=== PATIENT | female | born 1940 | race Caucasian/White ===

== ENCOUNTER 2017-07-19 18:16 | Emergency (ER) | payer OTHER ==
[2017-07-19 18:28] VITALS: BP 198/71; PULSE 60; TEMP 97.5; BMI 27.3
--- NOTE | 2017-07-19 19:18 | PDOC ---
History of Present Illness - General History Source: Patient Exam Limitations: No Limitations - History of Present Illness Initial Comments: 07/19/17 20:07 The patient is a 76 year old female with history of hypertension, diabetes, who presents to the ED complaining of approximately 3 days of suprapubic discomfort with associated mild dysuria. Pain is nonradiating, nonmigrating, not associated with eating. The patient denies any fever or chills. She denies any nausea, vomiting, or diarrhea. She denies hematuria. She denies any flank pain. <Claritza Manuel - Last Filed: 07/19/17 20:07> <Kamran Ordonez - Last Filed: 07/20/17 05:10> - General Chief Complaint: Urinary Problem Stated Complaint: PELVIC PAIN Time Seen by Provider: 07/19/17 19:12 Past History <Claritza Manuel - Last Filed: 07/19/17 20:07> - Past Medical History Diabetes: Yes HTN: Yes - Suicide/Smoking/Psychosocial Hx Smoking History: Never smoked <Kamran Ordonez - Last Filed: 07/20/17 05:10> - Past Medical History Allergies/Adverse Reactions: Allergies Allergy/AdvReac Type Severity Reaction Status Date / Time No Known Allergies Allergy Unverified 07/19/17 18:25 Home Medications: Ambulatory Orders Cephalexin [Keflex] 500 mg PO QID #20 capsule 07/19/17 Review of Systems - Review of Systems Able to Perform ROS?: Yes Comments:: 07/19/17 20:13 A complete review of 10 out of 10 review of systems is taken and is negative apart from what is previously mentioned below and in the HPI. <Claritza Manuel - Last Filed: 07/19/17 20:07> *Physical Exam - Vital Signs Last Vital Signs Temp Pulse Resp BP Pulse Ox 97.5 F L 60 18 198/71 100 07/19/17 18:25 07/19/17 18:25 07/19/17 18:25 07/19/17 18:25 07/19/17 18:25 <Claritza Manuel - Last Filed: 07/19/17 20:07> - Vital Signs Last Vital Signs Temp Pulse Resp BP Pulse Ox 97.5 F L 60 18 198/71 100 07/19/17 18:25 07/19/17 18:25 07/19/17 18:25 07/19/17 18:25 07/19/17 18:25 <Kamran Ordonez - Last Filed: 07/20/17 05:10> Medical Decision Making - Medical Decision Making 07/20/17 05:09 Well-appearing no apparent distress. History and examination and urinalysis consistent with urinary tract infection. Patient provided with 5 day course of Keflex. She'll follow-up with her primary care provider this week Findings, need for follow-up and strict return instructions discussed with patient. <Kamran Ordonez - Last Filed: 07/20/17 05:10> *DC/Admit/Observation/Transfer - Attestations Scribe Attestion: 07/19/17 20:13 Documentation prepared by Claritza Manuel, acting as medical equipment repairer for Kamran Ordonez MD. <Claritza Manuel - Last Filed: 07/19/17 20:07> <Kamran Ordonez - Last Filed: 07/20/17 05:10> Diagnosis at time of Disposition: UTI (urinary tract infection) Qualifiers: Urinary tract infection type: site unspecified Hematuria presence: with hematuria Qualified Code(s): N39.0 - Urinary tract infection, site not specified - Discharge Dispostion Disposition: HOME - Prescriptions Prescriptions: Cephalexin [Keflex] 500 mg PO QID #20 capsule - Referrals Referrals: Thang Villafuerte MD [Primary Care Provider] - - Patient Instructions Printed Discharge Instructions: Urinary Tract Infection Additional Instructions: Drink plenty of fluids. Take Keflex as prescribed. Follow-up with your doctor in 1-2 days. Return to the emergency department for any fever severe abdominal pain severe worsening symptoms or for any concerns.
[2017-07-19 20:00] LABS: URINE APPEARANCE CLOUDY; URINE BILIRUBIN NEGATIVE (NEGATIVE); URINE BLOOD 1+ (NEGATIVE); URINE COLOR LTYELLOW; URINE GLUCOSE (UA) 3+ (NEGATIVE); URINE KETONE NEGATIVE (NEGATIVE); URINE NITRITE NEGATIVE (NEGATIVE); URINE UROBILINOGEN NEGATIVE mg/dL (0.2-1.0)
[2017-07-19 20:08] LABS: URINE PROTEIN 2+ (NEGATIVE)
[2017-07-19 20:09] LABS: URINE RBC 13 /hpf (0-3); URINE WBC 558 /hpf (3-5)
[2017-07-19] MEDS ORDERED: CEPHALEXIN MONOHYDRATE 500 MG CAPSULE (UD) PO ONE (20:39)
[2017-07-19] MEDS ORDERED: CEPHALEXIN MONOHYDRATE 250 MG CAPSULE (FP) ONE (21:01)
[2017-07-19 21:17] LABS: URINE LEUK ESTERASE 1+ (NEGATIVE)
== END 2017-07-19 21:07 | disposition home or self-care (01) ==
LOC: JER 18:16
DX: N39.0 Urinary tract infection, site not specified (principal); I10 Essential (primary) hypertension; E11.9 Type 2 diabetes mellitus without complications
CPT/HCPCS: 81003; 81015; 87086; 99282-25

== ENCOUNTER 2018-01-18 10:01 | Day surgery (SDC) | payer OTHER ==
[2018-01-14 17:46] VITALS: BMI 24.9
[2018-01-18] MEDS ORDERED: VASOPRESSIN 20 UNITS/ML VIAL IV ONE (12:26)
[2018-01-18] MEDS ORDERED: fentaNYL CITRATE 250 MCG/5 ML VIAL ONE (12:29)
[2018-01-18] MEDS ORDERED: MIDAZOLAM HCL 2 MG/2 ML SINGLE DOSE VIAL ONE (12:30)
[2018-01-18] MEDS ORDERED: ROCURONIUM BROMIDE 50 MG/5 ML VIAL ONE (12:30)
[2018-01-18] MEDS ORDERED: ceFAZolin SODIUM 1 GM VIAL IVPB ONE (12:59)
[2018-01-18] MEDS ORDERED: FLUORESCEIN SODIUM 10% 500 MG/5 ML VIAL IVPUSH ONE (13:15)
[2018-01-18] MEDS ORDERED: FUROSEMIDE 40 MG/4 ML INJECTABLE VIAL ONE (13:38)
[2018-01-18] MEDS ORDERED: BUPIVACAINE HCL/PF 0.5% (5MG/ML) 10 ML VIAL ONE (13:39)
[2018-01-18] MEDS ORDERED: BUPIVACAINE HCL/PF 0.5% (5MG/ML) 10 ML VIAL IJ ONE (13:41)
--- NOTE | 2018-01-18 14:14 | OP ---
DATE OF OPERATION: PREOPERATIVE DIAGNOSIS: Stress urinary incontinence, cystocele, rectocele, perineocele. POSTOPERATIVE DIAGNOSIS: Stress urinary incontinence, cystocele, rectocele, perineocele. PROCEDURE PERFORMED: Sling, urethropexy, anterior and posterior colporrhaphy, perineoplasty. PRIMARY SURGEON: Timothy Schmid MD DESCRIPTION OF PROCEDURE: After adequate anesthesia, the patient was prepped and draped in dorsal lithotomy position. A dilute solution of Pitressin was injected anterior and posterior vaginal wall. A vertical incision was made over the anterior vaginal wall. Perivesical fascia was dissected away and plicated on itself using 0 Vicryl sutures in circumferential stitch x3 layers. The mid urethral area was dissected off the space of Retzius. A transvaginal tape sling was then inserted in its proper anatomical location. Cystoscopy was performed after solution of was given intravenously denoting no foreign bodies of the bladder and yellow dye emanating from both ureteral orifices. Minimal tension was applied to the sling arms. Sling arms were then covered with the skin. Skin closed using Dermabond. The anterior vaginal wall was closed using 2-0 Vicryl suture in continuous fashion. The back wall of the vaginal and perirectal fascia dissected away, plicated out using 2-0 Vicryl suture in interrupted fashion. The superficial muscle was reapproximated in the midline using 0 Vicryl suture in interrupted fashion x2. Rectal exam negative for any foreign bodies. The back wall of the vagina and perineal skin was then closed using 2-0 Vicryl sutures in continuous fashion. Margarita [id number]
[2018-01-18] MEDS ORDERED: hydrALAZINE HCL 20 MG/ML VIAL ONE (14:48)
[2018-01-18] MEDS ORDERED: oxyCODONE HCL 5 MG TABLET PO PRN (14:49)
[2018-01-18] MEDS ORDERED: ONDANSETRON 4 MG/2 ML VIAL IVPUSH PRN (14:49)
[2018-01-18] MEDS ORDERED: hydrALAZINE HCL 20 MG/ML VIAL IVPUSH ONE ×2 (14:50)
[2018-01-18] MEDS ORDERED: LACTATED RINGERS SOLUTION 1,000 ML IV SCH (15:00)
[2018-01-18 16:32] VITALS: TEMP 97.4
[2018-01-18 17:53] VITALS: BP 164/70; PULSE 75
--- NOTE | 2018-01-20 16:09 | PATH ---
Surgical Pathology Report Patient Name: SHELLEY VILLANUEVA [facility]. Rec. #: [id number] /Age/Gender: 1940 (Age: 77) / F Account: [id number] Location: [facility] SURGICAL Taken: 01/18/2018 Received: 01/19/2018 Reported: 01/20/2018 Physicians: Timothy Schmid M.D. Specimen(s) Received VAGINAL MUCOSA ANTERIOR AND POSTERIOR Clinical History Urinary stress incontinence Final Diagnosis VAGINAL MUCOSA, ANTERIOR AND POSTERIOR, EXCISION: VAGINAL SQUAMOUS MUCOSA WITHOUT SIGNIFICANT PATHOLOGIC FINDINGS. SEPARATE FRAGMENT OF FIBROUS TISSUE WITH MILD ACUTE AND CHRONIC INFLAMMATION. Electronically Signed Sandy Tapia M.D. Gross Description Received in formalin labeled "vaginal mucosa, anterior and posterior," are 2 lopez portions of mucosal tissue measuring 2.4 x 1.6 x 0.3 cm and 5.3 x 3.3 x 0.3 cm. No discrete lesions are identified. Mechanical Maintenance Foreman sections are submitted in one cassette. /01/19/2018 [facility]/01/19/2018
== END 2018-01-18 17:30 | disposition home or self-care (01) ==
LOC: JASU-SURG 10:01
PROVIDERS: ATTEND Obstetrics & Gynecology Female Pelvic Medicine and Reconstructive Surgery
PROC: 0WQN0ZZ Repair Female Perineum, Open Approach (ICD-10-PCS; 2018-01-18)
PROC: 0TSD0ZZ Reposition Urethra, Open Approach (ICD-10-PCS; 2018-01-18)
PROC: 0WBN0ZX Excision of Female Perineum, Open Approach, Diagnostic (ICD-10-PCS; 2018-01-18)
PROC: 0JQC0ZZ Repair Pelvic Region Subcutaneous Tissue and Fascia, Open Approach (ICD-10-PCS; principal; 2018-01-18 12:00)
PROC: 0JQC0ZZ Repair Pelvic Region Subcutaneous Tissue and Fascia, Open Approach (ICD-10-PCS; 2018-01-18 12:00)
DX: N39.3 Stress incontinence (female) (male) (principal); I10 Essential (primary) hypertension; E11.9 Type 2 diabetes mellitus without complications; E78.00 Pure hypercholesterolemia, unspecified; N81.10 Cystocele, unspecified; N81.6 Rectocele; N81.81 Perineocele
CPT/HCPCS: 82962; 88302-TC; 94760

== ENCOUNTER 2021-02-08 20:17 | Inpatient (IN) | payer OTHER ==
[2021-02-08] MEDS ORDERED: SODIUM CHLORIDE 0.9% 500 ML INFUS.BAG IV ONE (21:08)
[2021-02-08 21:16] LABS: HEMOGLOBIN 9.4 GM/dL (10.7-15.3); MCH 31.1 pg (25.7-33.7); MCHC 33.5 g/dl (32.0-36.0); MEAN CELL VOLUME 92.7 fl (80-96); PLATELET COUNT 367 K/MM3 (134-434); RBC 3.02 M/mm3 (3.60-5.2); RDW 13.3 % (11.6-15.6); WHITE BLOOD COUNT 7.8 K/mm3 (4.0-10.0)
[2021-02-08] MEDS ORDERED: LACTATED RINGERS SOLUTION 1000 ML INFUS.BAG IV ONE (21:18)
[2021-02-08] MEDS ORDERED: ATROPINE SULFATE 1 MG/10 ML DISP.SYRIN IVPUSH ONE ×2 (21:21→22:01)
[2021-02-08] MEDS ORDERED: ATROPINE SULFATE 1 MG/10 ML DISP.SYRIN ONE ×2 (21:23→21:33)
[2021-02-08 21:25] LABS: INR 0.97 (0.83-1.09); PROTHROMBIN TIME (PATIENT) 11.9 SEC (9.7-13.0)
[2021-02-08] MEDS ORDERED: EPINEPHrine 1:10,000 (P-F SYR) 1 MG/10 ML DISP.SYRIN ONE (21:38)
[2021-02-08] MEDS ORDERED: MAGNESIUM 1GM/D5W - 1 GM/100 ML IVPB IVPB ONE ×2 (21:41→22:21)
[2021-02-08 21:42] LABS: CHLORIDE 107 mmol/L (98-107); SODIUM 139 mmol/L (136-145)
[2021-02-08 21:44] LABS: ALBUMIN 3.5 g/dl (3.4-5.0); ANION GAP 10 MMOL/L (8-16); BLOOD UREA NITROGEN 23.8 mg/dL (7-18); CO2 22 mmol/L (21-32); GLUCOSE,RANDOM 281 mg/dL (74-106)
[2021-02-08 21:47] LABS: SGOT/AST 20 U/L (15-37); SGPT/ALT 18 U/L (13-61)
[2021-02-08 21:48] LABS: CREATININE 2.4 mg/dL (0.55-1.3)
[2021-02-08 21:49] LABS: BILIRUBIN,TOTAL 0.2 mg/dL (0.2-1); TOT PROT 6.6 g/dl (6.4-8.2)
[2021-02-08 21:50] LABS: ALK PHOS 94 U/L (45-117)
[2021-02-08] MEDS ORDERED: INSULIN REGULAR HUMAN 100 UNITS/ML *VIAL IVPUSH ONE (21:56)
[2021-02-08] MEDS ORDERED: DEXTROSE 50%-WATER - 25 GM/50 ML VIAL IVPUSH ONE (22:00)
[2021-02-08] MEDS ORDERED: FUROSEMIDE 40 MG/4 ML INJECTABLE VIAL IVPUSH ONE (22:00)
[2021-02-08] MEDS ORDERED: MAGNESIUM SULF 50% (8.12 MEQ/2 ML-1 GM VIAL) IVPB ONE (22:03)
[2021-02-08] MEDS ORDERED: DEXTROSE 50%-WATER 25 GM/50 ML DISP.SYRIN ONE (22:04)
[2021-02-08] MEDS ORDERED: SODIUM ZIRCONIUM CYCLOSILICATE (LOKELMA) 5 GM PACKET ONE (22:05)
[2021-02-08] MEDS ORDERED: FUROSEMIDE 40 MG/4 ML INJECTABLE VIAL ONE (22:05)
[2021-02-08] MEDS: SODIUM ZIRCONIUM CYCLOSILICATE (LOKELMA) 5 GM PACKET PO SCH (22:17)
[2021-02-08] MEDS ORDERED: EPINEPHrine 1 MG/ML VIAL IV ONE (22:45)
[2021-02-08] MEDS ORDERED: DOPAMINE 400 MG/D5W - 400,000 MCG/250 ML INFUS.BAG IVPB ONE (22:54)
[2021-02-08] MEDS ORDERED: CALCIUM GLUCONATE 10% - 1,000 MG/10 ML VIAL IVPB ONE (22:54)
[2021-02-08] MEDS ORDERED: DOPAMINE 400 MG/D5W - 400,000 MCG/250 ML INFUS.BAG IVPB SCH (23:00)
[2021-02-08] MEDS ORDERED: CALCIUM GLUCONATE 10% - 1,000 MG/10 ML VIAL ONE (23:00)
[2021-02-08] MEDS ORDERED: ONDANSETRON 4 MG/2 ML VIAL IVPUSH ONE (23:34)
[2021-02-08] MEDS ORDERED: ONDANSETRON 4 MG/2 ML VIAL ONE (23:35)
[2021-02-09] MEDS ORDERED: ONDANSETRON 4 MG/2 ML VIAL IVPUSH ONE ×2 (01:24→03:35)
[2021-02-09] MEDS ORDERED: ONDANSETRON 4 MG/2 ML VIAL ONE ×2 (01:28→03:35)
[2021-02-09] MEDS ORDERED: MUPIROCIN 2% TOPICAL OINTMENT FOR DECOLONIZATION NS SCH (01:45)
[2021-02-09] MEDS ORDERED: DOBUTAMINE 250 MG/D5W - 250,000 MCG/250 ML INFUS.BAG ONE (03:43)
[2021-02-09] MEDS ORDERED: DOBUTAMINE 250 MG/D5W - 250,000 MCG/250 ML INFUS.BAG IV SCH (03:45)
[2021-02-09 04:23] LABS: LACTIC ACID 2.2 mmol/L (0.4-2.0)
[2021-02-09 07:52] LABS: HEMATOCRIT 26.3 % (32.4-45.2); HEMOGLOBIN 8.9 GM/dL (10.7-15.3); MCH 30.8 pg (25.7-33.7); MCHC 33.6 g/dl (32.0-36.0); MEAN CELL VOLUME 91.6 fl (80-96); MEAN PLT VOLUME 7.4 fl (7.5-11.1); PLATELET COUNT 342 K/MM3 (134-434); RBC 2.88 M/mm3 (3.60-5.2); RDW 13.5 % (11.6-15.6); WHITE BLOOD COUNT 12.9 K/mm3 (4.0-10.0)
[2021-02-09 07:54] LABS: CHLORIDE 102 mmol/L (98-107); SODIUM 135 mmol/L (136-145)
[2021-02-09 07:57] LABS: ALBUMIN 3.3 g/dl (3.4-5.0); CALCIUM 7.4 mg/dL (8.5-10.1)
[2021-02-09 07:58] LABS: ANION GAP 12 MMOL/L (8-16); BLOOD UREA NITROGEN 28.9 mg/dL (7-18); CO2 21 mmol/L (21-32); MAGNESIUM 1.8 mg/dL (1.8-2.4)
[2021-02-09 08:00] LABS: SGPT/ALT 19 U/L (13-61)
[2021-02-09 08:01] LABS: CREATININE 2.7 mg/dL (0.55-1.3); PHOSPHOROUS 3.6 mg/dL (2.5-4.9); SGOT/AST 18 U/L (15-37)
[2021-02-09 08:02] LABS: BILIRUBIN,TOTAL 0.4 mg/dL (0.2-1); TOT PROT 6.2 g/dl (6.4-8.2)
[2021-02-09 08:03] LABS: ALK PHOS 85 U/L (45-117)
[2021-02-09 08:04] LABS: IRON SERUM 43 ug/dL (50-175)
[2021-02-09 08:05] LABS: TOTAL IRON BINDING CAPACITY 268 ug/dL (250-450)
[2021-02-09] MEDS ORDERED: MAGNESIUM SULF 50% (8.12 MEQ/2 ML-1 GM VIAL) IVPB ONE (08:15)
[2021-02-09] MEDS ORDERED: SODIUM BICARBONATE 8.4% 50 MEQ/50 ML DISP.SYRIN IVPUSH ONE (08:16)
[2021-02-09] MEDS ORDERED: DEXTROSE 50%-WATER - 25 GM/50 ML VIAL IVPUSH ONE (08:16)
[2021-02-09] MEDS ORDERED: INSULIN REGULAR HUMAN 100 UNITS/ML *VIAL IVPUSH ONE (08:16)
[2021-02-09 08:19] LABS: GLUCOSE,RANDOM 407 mg/dL (74-106)
[2021-02-09] MEDS ORDERED: DEXTROSE 50%-WATER 25 GM/50 ML DISP.SYRIN ONE (08:23)
[2021-02-09] MEDS: SODIUM ZIRCONIUM CYCLOSILICATE (LOKELMA) 5 GM PACKET PO SCH (09:10)
[2021-02-09] MEDS: MUPIROCIN 2% TOPICAL OINTMENT FOR DECOLONIZATION NS SCH ×2 (11:00→21:04)
[2021-02-09] MEDS: INSULIN SLIDING SCALE (NOVOLOG) 1 VIAL SQ SCH ×3 (11:48→21:05)
[2021-02-09 14:18] LABS: ALBUMIN 3.2 g/dl (3.4-5.0); CALCIUM 8.1 mg/dL (8.5-10.1)
[2021-02-09 14:19] LABS: BLOOD UREA NITROGEN 29.9 mg/dL (7-18)
[2021-02-09 14:22] LABS: CREATININE 2.5 mg/dL (0.55-1.3)
[2021-02-09 14:23] LABS: BILIRUBIN,TOTAL 0.5 mg/dL (0.2-1); TOT PROT 6.1 g/dl (6.4-8.2)
[2021-02-09 14:28] LABS: LACTIC ACID 2.6 mmol/L (0.4-2.0)
[2021-02-09 20:33] LABS: LACTIC ACID 3.5 mmol/L (0.4-2.0)
[2021-02-09] MEDS ORDERED: CHLORHEXIDINE GLUCONATE 4% CLEANSER FOR DECOLONIZATION TP SCH ×2 (22:00)
[2021-02-10] MEDS: INSULIN SLIDING SCALE (NOVOLOG) 1 VIAL SQ SCH ×4 (06:10→21:26)
[2021-02-10 07:57] LABS: CHLORIDE 107 mmol/L (98-107); SODIUM 141 mmol/L (136-145)
[2021-02-10 08:05] LABS: CALCIUM 8.4 mg/dL (8.5-10.1)
[2021-02-10 08:06] LABS: ALBUMIN 3.3 g/dl (3.4-5.0); ANION GAP 6 MMOL/L (8-16); BLOOD UREA NITROGEN 30.3 mg/dL (7-18); CO2 27 mmol/L (21-32); GLUCOSE,RANDOM 113 mg/dL (74-106); MAGNESIUM 2.3 mg/dL (1.8-2.4)
[2021-02-10 08:08] LABS: PHOSPHOROUS 5.3 mg/dL (2.5-4.9); SGPT/ALT 21 U/L (13-61)
[2021-02-10 08:09] LABS: BILIRUBIN,TOTAL 0.7 mg/dL (0.2-1); CREATININE 2.3 mg/dL (0.55-1.3); SGOT/AST 26 U/L (15-37)
[2021-02-10 08:10] LABS: ALK PHOS 78 U/L (45-117); TOT PROT 6.2 g/dl (6.4-8.2)
[2021-02-10 08:52] LABS: BASO % 0.4 % (0-2.0); EOS % 1.7 % (0-4.5); HEMATOCRIT 25.3 % (32.4-45.2); HEMOGLOBIN 8.6 GM/dL (10.7-15.3); LYMPH % 33.2 % (8-40); MCH 31.2 pg (25.7-33.7); MEAN CELL VOLUME 91.8 fl (80-96); MEAN PLT VOLUME 7.5 fl (7.5-11.1); MONO % 6.7 % (3.8-10.2); PLATELET COUNT 330 K/MM3 (134-434); RBC 2.76 M/mm3 (3.60-5.2); RDW 13.4 % (11.6-15.6); WHITE BLOOD COUNT 7.6 K/mm3 (4.0-10.0)
[2021-02-10] MEDS ORDERED: SODIUM CHLORIDE 1,000 ML IV SCH (10:30)
[2021-02-10] MEDS: SODIUM ZIRCONIUM CYCLOSILICATE (LOKELMA) 5 GM PACKET PO SCH (11:28)
[2021-02-10] MEDS: MUPIROCIN 2% TOPICAL OINTMENT FOR DECOLONIZATION NS SCH ×2 (11:29→21:25)
[2021-02-10] MEDS ORDERED: HEPARIN NA (PORCINE) 5,000 UNITS/ML 1ML VIAL SQ SCH (12:00)
[2021-02-10 13:36] VITALS: BMI 23.3
[2021-02-10] MEDS: CHLORHEXIDINE GLUCONATE 4% CLEANSER FOR DECOLONIZATION TP SCH (21:26)
[2021-02-10] MEDS: HEPARIN NA (PORCINE) 5,000 UNITS/ML 1ML VIAL SQ SCH (21:26)
[2021-02-10] MEDS ORDERED: hydrALAZINE HCL 20 MG/ML VIAL IVPUSH ONE (21:45)
[2021-02-11] MEDS: INSULIN SLIDING SCALE (NOVOLOG) 1 VIAL SQ SCH ×4 (06:03→21:43)
[2021-02-11] MEDS: LISINOPRIL 10 MG TABLET PO SCH (10:47)
[2021-02-11] MEDS: SODIUM ZIRCONIUM CYCLOSILICATE (LOKELMA) 5 GM PACKET PO SCH (10:47)
[2021-02-11] MEDS: HEPARIN NA (PORCINE) 5,000 UNITS/ML 1ML VIAL SQ SCH ×2 (10:47→21:42)
[2021-02-11 11:24] LABS: BASO % 0.6 % (0-2.0); EOS % 2.4 % (0-4.5); HEMATOCRIT 27.6 % (32.4-45.2); HEMOGLOBIN 9.4 GM/dL (10.7-15.3); LYMPH % 26.7 % (8-40); MCH 31.5 pg (25.7-33.7); MCHC 34.1 g/dl (32.0-36.0); MEAN CELL VOLUME 92.3 fl (80-96); MEAN PLT VOLUME 7.3 fl (7.5-11.1); MONO % 7.9 % (3.8-10.2); NEUT % 62.4 % (42.8-82.8); PLATELET COUNT 366 K/MM3 (134-434); RBC 2.99 M/mm3 (3.60-5.2); RDW 13.1 % (11.6-15.6); WHITE BLOOD COUNT 5.9 K/mm3 (4.0-10.0)
[2021-02-11] MEDS: MUPIROCIN 2% TOPICAL OINTMENT FOR DECOLONIZATION NS SCH ×2 (11:34→21:38)
[2021-02-11 11:39] LABS: ALBUMIN 3.2 g/dl (3.4-5.0); BLOOD UREA NITROGEN 22.1 mg/dL (7-18); CALCIUM 8.2 mg/dL (8.5-10.1); MAGNESIUM 1.8 mg/dL (1.8-2.4)
[2021-02-11 11:42] LABS: CREATININE 1.5 mg/dL (0.55-1.3)
[2021-02-11 11:44] LABS: BILIRUBIN,TOTAL 0.4 mg/dL (0.2-1); TOT PROT 6.5 g/dl (6.4-8.2)
[2021-02-11] MEDS: CHLORHEXIDINE GLUCONATE 4% CLEANSER FOR DECOLONIZATION TP SCH (21:38)
[2021-02-11] MEDS ORDERED: INSULIN (LEVEMIR) 100 UNITS/ML UNITS SQ SCH (22:00)
[2021-02-12] MEDS: INSULIN SLIDING SCALE (NOVOLOG) 1 VIAL SQ SCH ×3 (06:28→17:35)
[2021-02-12] MEDS: HEPARIN NA (PORCINE) 5,000 UNITS/ML 1ML VIAL SQ SCH (09:15)
[2021-02-12] MEDS: LISINOPRIL 10 MG TABLET PO SCH (09:15)
[2021-02-12] MEDS ORDERED: SODIUM ZIRCONIUM CYCLOSILICATE (LOKELMA) 5 GM PACKET PO SCH (10:00)
[2021-02-12 11:59] LABS: BASO % 0.6 % (0-2.0); EOS % 1.7 % (0-4.5); HEMATOCRIT 26.4 % (32.4-45.2); HEMOGLOBIN 9.1 GM/dL (10.7-15.3); LYMPH % 34.4 % (8-40); MCH 31.7 pg (25.7-33.7); MCHC 34.3 g/dl (32.0-36.0); MEAN CELL VOLUME 92.5 fl (80-96); MEAN PLT VOLUME 7.5 fl (7.5-11.1); MONO % 8.4 % (3.8-10.2); NEUT % 54.9 % (42.8-82.8); PLATELET COUNT 351 K/MM3 (134-434); RBC 2.86 M/mm3 (3.60-5.2); RDW 13.1 % (11.6-15.6)
[2021-02-12 12:23] LABS: ALBUMIN 3.2 g/dl (3.4-5.0); CALCIUM 8.2 mg/dL (8.5-10.1); MAGNESIUM 1.9 mg/dL (1.8-2.4)
[2021-02-12 12:26] LABS: CREATININE 1.8 mg/dL (0.55-1.3)
[2021-02-12 12:28] LABS: BILIRUBIN,TOTAL 0.2 mg/dL (0.2-1); TOT PROT 6.3 g/dl (6.4-8.2)
[2021-02-12] MEDS ORDERED: MECLIZINE HCL 12.5 MG TABLET PO PRN (13:46)
[2021-02-12 14:24] VITALS: BP 141/57; PULSE 55; TEMP 98.1
== END 2021-02-12 18:13 | disposition home or self-care (01) | DRG 309 ==
LOC: JER 20:17 → JERBED 22:31 → JICU 02-09 06:57 → J4W 02-10 18:26
PROVIDERS: ADMIT Internal Medicine Pulmonary Disease; ATTEND Nurse Practitioner Family
DX: I44.1 Atrioventricular block, second degree (principal); E87.2 Acidosis; N17.9 Acute kidney failure, unspecified; I24.8 Other forms of acute ischemic heart disease; R00.1 Bradycardia, unspecified; E87.5 Hyperkalemia; K21.9 Gastro-esophageal reflux disease without esophagitis; E83.42 Hypomagnesemia; E11.65 Type 2 diabetes mellitus with hyperglycemia; D50.9 Iron deficiency anemia, unspecified; D63.1 Anemia in chronic kidney disease; I12.9 Hypertensive chronic kidney disease with stage 1 through stage 4 chronic kidney disease, or unspecified chronic kidney disease; E11.22 Type 2 diabetes mellitus with diabetic chronic kidney disease; N18.9 Chronic kidney disease, unspecified
CPT/HCPCS: 36415; 71045-TC-FY; 80053; 82550; 82728; 82962; 83036; 83540; 83550; 83605; 83735; 84100; 84443; 84484; 85025; 85027; 85610; 93005; 93010; 93225; 93226; 93306-TC; 97116-GP; 97162-GP; 99291; C9803; J1250; J1644; U0003; U0005

== ENCOUNTER 2021-02-19 12:15 | Inpatient (IN) | payer OTHER ==
[2021-02-19 13:40] LABS: BASO % 0.2 % (0-2.0); EOS % 0.6 % (0-4.5); HEMATOCRIT 25.4 % (32.4-45.2); HEMOGLOBIN 8.7 GM/dL (10.7-15.3); LYMPH % 30.2 % (8-40); MCHC 34.4 g/dl (32.0-36.0); MEAN PLT VOLUME 7.6 fl (7.5-11.1); MONO % 6.2 % (3.8-10.2); NEUT % 62.8 % (42.8-82.8); PLATELET COUNT 368 K/MM3 (134-434); RBC 2.74 M/mm3 (3.60-5.2); RDW 13.2 % (11.6-15.6); WHITE BLOOD COUNT 7.4 K/mm3 (4.0-10.0)
[2021-02-19 13:46] LABS: INR 0.98 (0.83-1.09); PROTHROMBIN TIME (PATIENT) 11.9 SEC (9.7-13.0)
[2021-02-19 14:08] LABS: CHLORIDE 109 mmol/L (98-107); SODIUM 136 mmol/L (136-145)
[2021-02-19 14:10] LABS: ALBUMIN 3.3 g/dl (3.4-5.0); CALCIUM 8.5 mg/dL (8.5-10.1)
[2021-02-19 14:11] LABS: CO2 19 mmol/L (21-32); GLUCOSE,RANDOM 123 mg/dL (74-106); MAGNESIUM 1.3 mg/dL (1.8-2.4)
[2021-02-19 14:13] LABS: SGPT/ALT 49 U/L (13-61)
[2021-02-19 14:14] LABS: PHOSPHOROUS 3.8 mg/dL (2.5-4.9); SGOT/AST 43 U/L (15-37)
[2021-02-19 14:15] LABS: BILIRUBIN,TOTAL 0.2 mg/dL (0.2-1); TOT PROT 6.5 g/dl (6.4-8.2)
[2021-02-19 14:16] LABS: ALK PHOS 138 U/L (45-117)
[2021-02-19 14:19] LABS: N-TERMINAL BNP 4317.1 pg/ml (5-450)
[2021-02-19 14:22] LABS: ANION GAP 8 MMOL/L (8-16)
[2021-02-19] MEDS ORDERED: CALCIUM GLUC IN NACL, ISO-OSM 1 GM/50 ML BAG IVPB ONE (14:24)
[2021-02-19] MEDS ORDERED: INSULIN REGULAR HUMAN 100 UNITS/ML *VIAL IVPUSH ONE (14:24)
[2021-02-19] MEDS ORDERED: DEXTROSE 50%-WATER - 25 GM/50 ML VIAL IVPUSH ONE (14:25)
[2021-02-19] MEDS ORDERED: SODIUM CHLORIDE 500 ML IV STA (14:26)
[2021-02-19] MEDS ORDERED: ALBUTEROL SO4 0.083% IH SOL 2.5 MG/3 ML VIAL.NEB. NEB ONE ×3 (14:26→15:34)
[2021-02-19] MEDS ORDERED: SODIUM BICARBONATE 8.4% 50 MEQ/50 ML DISP.SYRIN IVPUSH ONE (14:26)
[2021-02-19] MEDS ORDERED: SODIUM ZIRCONIUM CYCLOSILICATE (LOKELMA) 5 GM PACKET PO SCH (14:30)
[2021-02-19] MEDS ORDERED: CALCIUM GLUCONATE 10% - 1,000 MG/10 ML VIAL ONE (14:30)
[2021-02-19] MEDS ORDERED: DEXTROSE 50%-WATER 25 GM/50 ML DISP.SYRIN ONE (14:31)
[2021-02-19] MEDS ORDERED: SODIUM BICARBONATE 8.4% - 50 ML ONE (14:31)
[2021-02-19] MEDS ORDERED: SODIUM ZIRCONIUM CYCLOSILICATE (LOKELMA) 5 GM PACKET ONE (15:01)
[2021-02-19] MEDS: ALBUTEROL SO4 0.083% IH SOL 2.5 MG/3 ML VIAL.NEB. NEB SCH ×4 (15:10→15:45)
[2021-02-19] MEDS: SODIUM CHLORIDE 1,000 ML IV SCH (16:00)
[2021-02-19 16:39] LABS: VENOUS BASE EXCESS -7.3 mmol/L (-2-2); VENOUS O2 SATURATION 29.8 % (70-80); VENOUS PCO2 40.9 mmHg (38-52); VENOUS PH 7.282 (7.310-7.410)
[2021-02-19 16:48] LABS: BASO % 0.6 % (0-2.0); EOS % 0.8 % (0-4.5); HEMATOCRIT 24.3 % (32.4-45.2); HEMOGLOBIN 8.3 GM/dL (10.7-15.3); LYMPH % 41.7 % (8-40); MCH 31.7 pg (25.7-33.7); MCHC 34.1 g/dl (32.0-36.0); MEAN PLT VOLUME 7.6 fl (7.5-11.1); MONO % 7.4 % (3.8-10.2); NEUT % 49.5 % (42.8-82.8); PLATELET COUNT 358 K/MM3 (134-434); RBC 2.62 M/mm3 (3.60-5.2); RDW 13.6 % (11.6-15.6); WHITE BLOOD COUNT 7.8 K/mm3 (4.0-10.0)
[2021-02-19 17:12] LABS: ALBUMIN 3.1 g/dl (3.4-5.0); BLOOD UREA NITROGEN 40.4 mg/dL (7-18); CALCIUM 8.9 mg/dL (8.5-10.1)
[2021-02-19 17:15] LABS: CREATININE 1.9 mg/dL (0.55-1.3)
[2021-02-19 17:17] LABS: BILIRUBIN,TOTAL 0.3 mg/dL (0.2-1); TOT PROT 5.9 g/dl (6.4-8.2)
[2021-02-19] MEDS ORDERED: NIFEdipine E.R. 30 MG TABLET ONE (18:44)
[2021-02-19] MEDS: NIFEdipine E.R. 30 MG TABLET PO SCH (18:49)
[2021-02-19 21:05] LABS: PH,URINE 5.5 (5.0-8.0); URINE APPEARANCE CLEAR; URINE BILIRUBIN NEGATIVE (NEGATIVE); URINE COLOR YELLOW; URINE GLUCOSE (UA) NEGATIVE (NEGATIVE); URINE KETONE NEGATIVE (NEGATIVE); URINE LEUK ESTERASE NEGATIVE (NEGATIVE); URINE NITRITE NEGATIVE (NEGATIVE); URINE PROTEIN TRACE (NEGATIVE); URINE UROBILINOGEN 0.2 mg/dL (0.2-1.0)
[2021-02-19] MEDS ORDERED: CHLORHEXIDINE GLUCONATE 4% CLEANSER FOR DECOLONIZATION TP SCH (22:00)
[2021-02-20] MEDS ORDERED: MAGNESIUM SULF 50% (8.12 MEQ/2 ML-1 GM VIAL) IVPB ONE ×2 (00:16→07:50)
[2021-02-20] MEDS ORDERED: MAGNESIUM SULFATE IN WATER 2 GM/50 ML IVPB IVPB ONE (00:28)
[2021-02-20] MEDS: MUPIROCIN 2% TOPICAL OINTMENT FOR DECOLONIZATION NS SCH ×3 (01:54→21:40)
[2021-02-20] MEDS: INSULIN SLIDING SCALE (NOVOLOG) 1 VIAL SQ SCH ×5 (01:55→21:34)
[2021-02-20 04:05] LABS: LACTIC ACID 2.3 mmol/L (0.4-2.0)
[2021-02-20 05:17] LABS: ARTERIAL BLOOD GAS BASE EXCESS -6.8 mmol/L (-2-2); ARTERIAL BLOOD GAS PO2 80.5 mmHg (80-100); ARTERIAL BLOOD GAS pH 7.388 (7.350-7.450)
[2021-02-20 05:18] LABS: ALLENS TEST POSITIVE
[2021-02-20 06:34] LABS: BASO % 0.5 % (0-2.0); EOS % 0.8 % (0-4.5); HEMATOCRIT 23.6 % (32.4-45.2); HEMOGLOBIN 7.9 GM/dL (10.7-15.3); INR 0.97 (0.83-1.09); LYMPH % 25.4 % (8-40); MCH 31.3 pg (25.7-33.7); MCHC 33.5 g/dl (32.0-36.0); MEAN CELL VOLUME 93.5 fl (80-96); MEAN PLT VOLUME 7.8 fl (7.5-11.1); NEUT % 65.3 % (42.8-82.8); PLATELET COUNT 329 K/MM3 (134-434); PROTHROMBIN TIME (PATIENT) 11.8 SEC (9.7-13.0); RBC 2.52 M/mm3 (3.60-5.2); RDW 13.6 % (11.6-15.6); WHITE BLOOD COUNT 6.9 K/mm3 (4.0-10.0)
[2021-02-20 06:36] LABS: ACTIVATED PTT 28.6 SECONDS (25.2-36.5)
[2021-02-20 06:43] LABS: CALCIUM 8.4 mg/dL (8.5-10.1)
[2021-02-20 06:44] LABS: ALBUMIN 2.9 g/dl (3.4-5.0); MAGNESIUM 1.7 mg/dL (1.8-2.4)
[2021-02-20 06:47] LABS: BLOOD UREA NITROGEN 42.8 mg/dL (7-18); CREATININE 1.8 mg/dL (0.55-1.3)
[2021-02-20 06:48] LABS: BILIRUBIN,TOTAL 0.2 mg/dL (0.2-1); TOT PROT 5.7 g/dl (6.4-8.2)
[2021-02-20 06:50] LABS: PHOSPHOROUS 4.2 mg/dL (2.5-4.9)
[2021-02-20] MEDS ORDERED: INSULIN REGULAR HUMAN 100 UNITS/ML *VIAL IVPUSH ONE (07:58)
[2021-02-20] MEDS ORDERED: CALCIUM GLUCONATE 10% - 1,000 MG/10 ML VIAL IVPUSH ONE (07:59)
[2021-02-20] MEDS ORDERED: DEXTROSE 50%-WATER - 25 GM/50 ML VIAL IVPUSH ONE (08:17)
[2021-02-20] MEDS ORDERED: SODIUM ZIRCONIUM CYCLOSILICATE (LOKELMA) 5 GM PACKET PO ONE (08:45)
[2021-02-20] MEDS ORDERED: DEXTROSE 50%-WATER 25 GM/50 ML DISP.SYRIN ONE (08:58)
[2021-02-20] MEDS: NIFEdipine E.R. 30 MG TABLET PO SCH (10:00)
[2021-02-20 11:30] LABS: BLOOD UREA NITROGEN 41.3 mg/dL (7-18)
[2021-02-20 11:33] LABS: CREATININE 1.9 mg/dL (0.55-1.3)
[2021-02-20 11:36] LABS: LACTIC ACID 2.4 mmol/L (0.4-2.0)
[2021-02-20] MEDS ORDERED: LIDOCAINE HCL 1%, 10 MG/ML (20ML VIAL) ONE (11:57)
[2021-02-20] MEDS ORDERED: BUPIVACAINE HCL/PF 0.5% (5MG/ML) 10 ML VIAL IJ ONE ×3 (12:00→13:38)
[2021-02-20] MEDS ORDERED: LIDOCAINE HCL 1%, 10 MG/ML (20ML VIAL) NR ONE ×3 (12:00→13:38)
[2021-02-20] MEDS ORDERED: BACITRACIN 50,000 UNITS VIAL TP ONE ×2 (12:01→13:38)
[2021-02-20] MEDS ORDERED: MIDAZOLAM HCL 2 MG/2 ML SINGLE DOSE VIAL ONE ×2 (12:15→14:14)
[2021-02-20] MEDS ORDERED: ceFAZolin SODIUM 1 GM VIAL IVPB ONE (13:00)
[2021-02-20] MEDS ORDERED: ceFAZolin SODIUM 1 GM VIAL ONE (14:04)
[2021-02-20] MEDS: SODIUM CHLORIDE 1,000 ML IV SCH (15:40)
[2021-02-20] MEDS ORDERED: NIFEdipine E.R. 30 MG TABLET PO ONE (17:03)
[2021-02-20] MEDS ORDERED: ACETAMINOPHEN 325 MG TABLET (FP) PO ONE (18:37)
[2021-02-20] MEDS ORDERED: HYDROCHLOROTHIAZIDE 12.5 MG CAPSULE (FP) PO SCH (20:45)
[2021-02-20] MEDS: CHLORHEXIDINE GLUCONATE 4% CLEANSER FOR DECOLONIZATION TP SCH (21:29)
[2021-02-21] MEDS ORDERED: SODIUM CHLORIDE 1,000 ML IV SCH (02:43)
[2021-02-21] MEDS: INSULIN SLIDING SCALE (NOVOLOG) 1 VIAL SQ SCH ×4 (06:27→21:50)
[2021-02-21] MEDS: MUPIROCIN 2% TOPICAL OINTMENT FOR DECOLONIZATION NS SCH ×2 (09:37→21:50)
[2021-02-21] MEDS ORDERED: NIFEdipine E.R. 30 MG TABLET PO SCH (10:00)
[2021-02-21 11:37] LABS: BASO % 0.5 % (0-2.0); EOS % 1.5 % (0-4.5); HEMOGLOBIN 9.4 GM/dL (10.7-15.3); LYMPH % 7.7 % (8-40); MCH 31.1 pg (25.7-33.7); MCHC 33.6 g/dl (32.0-36.0); MEAN CELL VOLUME 92.7 fl (80-96); MEAN PLT VOLUME 7.4 fl (7.5-11.1); MONO % 4.9 % (3.8-10.2); NEUT % 85.4 % (42.8-82.8); PLATELET COUNT 388 K/MM3 (134-434); RBC 3.02 M/mm3 (3.60-5.2); RDW 13.6 % (11.6-15.6); WHITE BLOOD COUNT 10.4 K/mm3 (4.0-10.0)
[2021-02-21 11:50] LABS: ALBUMIN 3.3 g/dl (3.4-5.0); BLOOD UREA NITROGEN 34.1 mg/dL (7-18); CALCIUM 9.3 mg/dL (8.5-10.1); MAGNESIUM 2.1 mg/dL (1.8-2.4)
[2021-02-21 11:54] LABS: CREATININE 1.6 mg/dL (0.55-1.3)
[2021-02-21 11:55] LABS: PHOSPHOROUS 4.7 mg/dL (2.5-4.9)
[2021-02-21 11:56] LABS: BILIRUBIN,TOTAL 0.4 mg/dL (0.2-1); TOT PROT 6.7 g/dl (6.4-8.2)
[2021-02-21] MEDS: SODIUM ZIRCONIUM CYCLOSILICATE (LOKELMA) 5 GM PACKET PO SCH (12:09)
[2021-02-21] MEDS ORDERED: NIFEdipine E.R 60 MG TABLET PO SCH (14:40)
[2021-02-21 15:07] VITALS: BMI 27.9
[2021-02-21] MEDS ORDERED: METOPROLOL TARTRATE 25 MG TABLET (FP) PO ONE (15:29)
[2021-02-21] MEDS: PANTOPRAZOLE 40 MG TABLET PO SCH (17:49)
[2021-02-21] MEDS: HYDROCHLOROTHIAZIDE 12.5 MG CAPSULE (FP) PO SCH (17:50)
[2021-02-21] MEDS ORDERED: PT OWN MED DRAWER 7, Y5N ONE (20:33)
[2021-02-21] MEDS ORDERED: MAG HYDROX/AL HYDROX/SIMETH 30 ML UNIT-DOSE CUP PO ONE (21:15)
[2021-02-21] MEDS ORDERED: ACETAMINOPHEN 1000 MG/100 ML VIAL (NON FORMULARY) IVPB ONE (21:15)
[2021-02-21] MEDS: CHLORHEXIDINE GLUCONATE 4% CLEANSER FOR DECOLONIZATION TP SCH (21:50)
[2021-02-21] MEDS: METOPROLOL TARTRATE 25 MG TABLET (FP) PO SCH (21:50)
[2021-02-22] MEDS: INSULIN SLIDING SCALE (NOVOLOG) 1 VIAL SQ SCH ×3 (07:25→17:19)
[2021-02-22] MEDS: HYDROCHLOROTHIAZIDE 12.5 MG CAPSULE (FP) PO SCH (09:15)
[2021-02-22] MEDS: PANTOPRAZOLE 40 MG TABLET PO SCH (09:15)
[2021-02-22] MEDS: METOPROLOL TARTRATE 25 MG TABLET (FP) PO SCH (09:15)
[2021-02-22] MEDS: MUPIROCIN 2% TOPICAL OINTMENT FOR DECOLONIZATION NS SCH (09:15)
[2021-02-22] MEDS: SODIUM ZIRCONIUM CYCLOSILICATE (LOKELMA) 5 GM PACKET PO SCH (09:15)
[2021-02-22] MEDS ORDERED: INSULIN (LEVEMIR) 100 UNITS/ML UNITS SQ STA (12:25)
[2021-02-22 13:09] LABS: BASO % 0.7 % (0-2.0); HEMATOCRIT 26.2 % (32.4-45.2); HEMOGLOBIN 8.9 GM/dL (10.7-15.3); LYMPH % 19.7 % (8-40); MCH 31.4 pg (25.7-33.7); MCHC 34.1 g/dl (32.0-36.0); MEAN CELL VOLUME 92.3 fl (80-96); MEAN PLT VOLUME 6.5 fl (7.5-11.1); MONO % 6.5 % (3.8-10.2); NEUT % 71.1 % (42.8-82.8); PLATELET COUNT 371 K/MM3 (134-434); RBC 2.84 M/mm3 (3.60-5.2); RDW 13.7 % (11.6-15.6)
[2021-02-22 13:31] VITALS: TEMP 98
[2021-02-22] MEDS ORDERED: INSULIN (LEVEMIR) 100 UNITS/ML UNITS SQ ONE (13:36)
[2021-02-22 13:38] LABS: ALBUMIN 3.2 g/dl (3.4-5.0); CALCIUM 8.9 mg/dL (8.5-10.1)
[2021-02-22 13:39] LABS: BLOOD UREA NITROGEN 35.6 mg/dL (7-18)
[2021-02-22 13:42] LABS: CREATININE 1.8 mg/dL (0.55-1.3); PHOSPHOROUS 4.3 mg/dL (2.5-4.9)
[2021-02-22 13:43] LABS: BILIRUBIN,TOTAL 0.4 mg/dL (0.2-1); TOT PROT 6.8 g/dl (6.4-8.2)
[2021-02-22 18:13] VITALS: BP 149/75; PULSE 73
[2021-02-23] MEDS ORDERED: INSULIN (LEVEMIR) 100 UNITS/ML UNITS SQ SCH (07:00)
== END 2021-02-22 20:24 | disposition home or self-care (01) | DRG 243 ==
LOC: JER 12:15 → JERBED 15:17 → JICU 02-20 01:18
PROVIDERS: ADMIT Internal Medicine Pulmonary Disease; ATTEND Internal Medicine
PROC: 02H63JZ Insertion of Pacemaker Lead into Right Atrium, Percutaneous Approach (ICD-10-PCS; 2021-02-20)
PROC: 02HK3JZ Insertion of Pacemaker Lead into Right Ventricle, Percutaneous Approach (ICD-10-PCS; 2021-02-20)
PROC: 0JH606Z Insertion of Pacemaker, Dual Chamber into Chest Subcutaneous Tissue and Fascia, Open Approach (ICD-10-PCS; principal; 2021-02-20 12:00)
DX: I44.1 Atrioventricular block, second degree (principal); N17.9 Acute kidney failure, unspecified; E87.2 Acidosis; E11.22 Type 2 diabetes mellitus with diabetic chronic kidney disease; I42.8 Other cardiomyopathies; I12.9 Hypertensive chronic kidney disease with stage 1 through stage 4 chronic kidney disease, or unspecified chronic kidney disease; N18.9 Chronic kidney disease, unspecified; D64.9 Anemia, unspecified; E78.5 Hyperlipidemia, unspecified; Z79.84 Long term (current) use of oral hypoglycemic drugs; E87.5 Hyperkalemia; I95.9 Hypotension, unspecified
CPT/HCPCS: 36415; 36600; 71045-TC-FY; 80048; 80053; 81003; 82550; 82803; 82962; 83036; 83605; 83735; 83880; 84100; 84484; 85025; 85610; 85730; 86850; 86900; 86901; 93005; 93010; 97116-GP; 97161-GP; 99291; C9803; J0131; U0003; U0005

== ENCOUNTER 2023-05-12 16:56 | Inpatient (IN) | payer OTHER ==
[2023-05-12 17:13] VITALS: BMI 37.0
[2023-05-12 19:58] LABS: BASO % 0.6 % (0-2.0); EOS % 3.1 % (0-4.5); HEMATOCRIT 31.3 % (32.4-45.2); HEMOGLOBIN 10.5 GM/dL (10.7-15.3); LYMPH % 36.3 % (8-40); MCH 28.6 pg (25.7-33.7); MCHC 33.4 g/dl (32.0-36.0); MEAN CELL VOLUME 85.7 fl (80-96); MEAN PLT VOLUME 7.5 fl (7.5-11.1); MONO % 10.8 % (3.8-10.2); NEUT % 49.2 % (42.8-82.8); PLATELET COUNT 448 10^3/uL (134-434); RBC 3.65 M/mm3 (3.60-5.2); RDW 13.5 % (11.6-15.6); WHITE BLOOD COUNT 7.1 K/mm3 (4.0-10.0)
[2023-05-12 20:04] LABS: INR 0.96 (0.83-1.09); PROTHROMBIN TIME (PATIENT) 11.1 SEC (9.7-13.0)
[2023-05-12 20:07] LABS: ACTIVATED PTT 31.7 SECONDS (25.2-36.5)
[2023-05-12 20:16] LABS: POTASSIUM 4.7 mmol/L (3.5-5.1)
[2023-05-12 20:18] LABS: CALCIUM 8.7 mg/dL (8.5-10.1)
[2023-05-12 20:19] LABS: ALBUMIN 3.6 g/dl (3.4-5.0); BLOOD UREA NITROGEN 49.5 mg/dL (7-18)
[2023-05-12 20:22] LABS: CREATININE 2.4 mg/dL (0.55-1.3)
[2023-05-12 20:24] LABS: BILIRUBIN,TOTAL 0.3 mg/dL (0.2-1); TOT PROT 7.4 g/dl (6.4-8.2)
[2023-05-12] MEDS ORDERED: SODIUM CHLORIDE 500 ML IV STA (21:05)
[2023-05-12 23:59] LABS: POTASSIUM 4.4 mmol/L (3.5-5.1)
[2023-05-13 00:01] LABS: CALCIUM 8.3 mg/dL (8.5-10.1)
[2023-05-13 00:02] LABS: ALBUMIN 3.3 g/dl (3.4-5.0); BLOOD UREA NITROGEN 46.9 mg/dL (7-18)
[2023-05-13 00:05] LABS: CREATININE 2.3 mg/dL (0.55-1.3)
[2023-05-13 00:07] LABS: BILIRUBIN,TOTAL 0.3 mg/dL (0.2-1); TOT PROT 7.1 g/dl (6.4-8.2)
[2023-05-13] MEDS ORDERED: SODIUM CHLORIDE 1,000 ML IV SCH (00:45)
[2023-05-13] MEDS ORDERED: HEPARIN NA (PORCINE) 5,000 UNITS/ML 1ML VIAL ONE ×2 (05:25→13:43)
[2023-05-13] MEDS: HEPARIN NA (PORCINE) 5,000 UNITS/ML 1ML VIAL SQ SCH ×3 (05:31→23:12)
[2023-05-13 06:20] LABS: BASO % 0.8 % (0-2.0); EOS % 2.9 % (0-4.5); HEMOGLOBIN 10.4 GM/dL (10.7-15.3); LYMPH % 29.9 % (8-40); MCH 28.7 pg (25.7-33.7); MCHC 33.5 g/dl (32.0-36.0); MEAN CELL VOLUME 85.7 fl (80-96); MEAN PLT VOLUME 7.2 fl (7.5-11.1); MONO % 9.7 % (3.8-10.2); NEUT % 56.7 % (42.8-82.8); PLATELET COUNT 412 10^3/uL (134-434); RBC 3.61 M/mm3 (3.60-5.2); RDW 13.4 % (11.6-15.6); WHITE BLOOD COUNT 6.3 K/mm3 (4.0-10.0)
[2023-05-13 06:36] LABS: POTASSIUM 4.6 mmol/L (3.5-5.1)
[2023-05-13 06:38] LABS: ALBUMIN 3.3 g/dl (3.4-5.0); BLOOD UREA NITROGEN 46.5 mg/dL (7-18); CALCIUM 8.4 mg/dL (8.5-10.1)
[2023-05-13 06:39] LABS: MAGNESIUM 1.7 mg/dL (1.8-2.4)
[2023-05-13 06:41] LABS: CREATININE 2.5 mg/dL (0.55-1.3); PHOSPHOROUS 4.8 mg/dL (2.5-4.9)
[2023-05-13 06:43] LABS: BILIRUBIN,TOTAL 0.3 mg/dL (0.2-1); TOT PROT 7.1 g/dl (6.4-8.2)
[2023-05-13] MEDS ORDERED: ACETAMINOPHEN 325 MG TABLET (FP) PO PRN (06:49)
[2023-05-13] MEDS: INSULIN SLIDING SCALE (NOVOLOG) 1 VIAL SQ SCH ×4 (08:20→23:16)
[2023-05-13] MEDS ORDERED: GABAPENTIN 100 MG CAPSULE ONE ×2 (08:45→13:43)
[2023-05-13] MEDS: LIDOCAINE 5% TOPICAL PATCH TP SCH (09:08)
[2023-05-13] MEDS: hydrALAZINE HCL 25 MG TABLET (FP) PO SCH ×2 (09:08→23:13)
[2023-05-13] MEDS: GABAPENTIN 100 MG CAPSULE PO SCH ×3 (09:08→23:12)
[2023-05-13] MEDS: amLODIPine BESYLATE 10 MG TABLET (FP) PO SCH (09:09)
[2023-05-13] MEDS: METOPROLOL TARTRATE 50 MG TABLET (FP) PO SCH ×2 (09:09→23:11)
[2023-05-13] MEDS: PANTOPRAZOLE 40 MG TABLET PO SCH (09:09)
[2023-05-13 10:37] LABS: EPI CELLS 5 /uL (0-25.1); HYALINE CASTS 0 /uL (0-3.1); URINE APPEARANCE CLEAR; URINE BACTERIA 1 /uL (0-1359); URINE BILIRUBIN NEGATIVE (NEGATIVE); URINE COLOR YELLOW; URINE GLUCOSE (UA) TRACE (NEGATIVE); URINE KETONE NEGATIVE (NEGATIVE); URINE LEUK ESTERASE NEGATIVE (NEGATIVE); URINE NITRITE NEGATIVE (NEGATIVE); URINE PROTEIN 1+ (NEGATIVE); URINE RBC 9 /uL (0-23.9); URINE UROBILINOGEN 0.2 mg/dL (0.2-1.0); URINE WBC 11 /uL (0-25.8)
[2023-05-13] MEDS ORDERED: MAGNESIUM OXIDE 400 MG TABLET (FP) PO ONE (12:52)
[2023-05-13] MEDS ORDERED: MAGNESIUM OXIDE 400 MG TABLET (FP) ONE (13:19)
[2023-05-13] MEDS ORDERED: SODIUM CHLORIDE 0.45% 1,000 ML IV SCH (16:45)
[2023-05-13] MEDS ORDERED: LIDOCAINE PATCH REMOVAL MC SCH (22:00)
[2023-05-13] MEDS: LIDOCAINE PATCH REMOVAL MC SCH (23:13)
[2023-05-13] MEDS: INSULIN (LEVEMIR) 100 UNITS/ML UNITS SQ SCH (23:14)
[2023-05-13] MEDS: ATORVASTATIN CA 20 MG TABLET (FP) PO SCH (23:15)
[2023-05-14] MEDS ORDERED: INSULIN (NOVOLOG) ASPART 100 UNITS/ML 10ML VIAL ONE ×4 (06:55→17:46)
[2023-05-14] MEDS: GABAPENTIN 100 MG CAPSULE PO SCH ×3 (06:58→22:21)
[2023-05-14] MEDS: HEPARIN NA (PORCINE) 5,000 UNITS/ML 1ML VIAL SQ SCH ×3 (06:59→22:21)
[2023-05-14] MEDS: INSULIN SLIDING SCALE (NOVOLOG) 1 VIAL SQ SCH ×4 (06:59→22:23)
[2023-05-14] MEDS: METOPROLOL TARTRATE 50 MG TABLET (FP) PO SCH ×2 (09:37→22:21)
[2023-05-14] MEDS: LIDOCAINE 5% TOPICAL PATCH TP SCH (09:37)
[2023-05-14] MEDS: amLODIPine BESYLATE 10 MG TABLET (FP) PO SCH (09:37)
[2023-05-14] MEDS: PANTOPRAZOLE 40 MG TABLET PO SCH (09:37)
[2023-05-14] MEDS: hydrALAZINE HCL 25 MG TABLET (FP) PO SCH ×2 (09:37→22:21)
[2023-05-14 10:13] LABS: EOS % 2.8 % (0-4.5); HEMATOCRIT 29.2 % (32.4-45.2); MCH 28.8 pg (25.7-33.7); MCHC 34.1 g/dl (32.0-36.0); MEAN CELL VOLUME 84.5 fl (80-96); MEAN PLT VOLUME 6.9 fl (7.5-11.1); NEUT % 59.2 % (42.8-82.8); PLATELET COUNT 374 10^3/uL (134-434); RBC 3.46 M/mm3 (3.60-5.2); RDW 13.6 % (11.6-15.6); WHITE BLOOD COUNT 5.7 K/mm3 (4.0-10.0)
[2023-05-14 10:32] LABS: POTASSIUM 4.8 mmol/L (3.5-5.1)
[2023-05-14 10:35] LABS: BLOOD UREA NITROGEN 38.5 mg/dL (7-18); CALCIUM 8.5 mg/dL (8.5-10.1)
[2023-05-14 10:40] LABS: BILIRUBIN,TOTAL 0.4 mg/dL (0.2-1); TOT PROT 6.8 g/dl (6.4-8.2)
[2023-05-14 14:39] VITALS: RESP 18
[2023-05-14] MEDS ORDERED: BISACODYL 5 MG TABLET.DR (FP) PO PRN (17:52)
[2023-05-14] MEDS ORDERED: POLYETHYLENE GLYCOL (HEALTHYLAX) 3350 17 GM PACKET PO SCH (18:00)
[2023-05-14] MEDS ORDERED: DOCUSATE SODIUM 100 MG CAPSULE (FP) PO SCH (22:00)
[2023-05-14] MEDS: ATORVASTATIN CA 20 MG TABLET (FP) PO SCH (22:21)
[2023-05-14] MEDS: INSULIN (LEVEMIR) 100 UNITS/ML UNITS SQ SCH (22:22)
[2023-05-14] MEDS: LIDOCAINE PATCH REMOVAL MC SCH (22:23)
[2023-05-15 06:23] VITALS: BP 155/60; PULSE 60; TEMP 98.2
[2023-05-15] MEDS: HEPARIN NA (PORCINE) 5,000 UNITS/ML 1ML VIAL SQ SCH (06:34)
[2023-05-15] MEDS: GABAPENTIN 100 MG CAPSULE PO SCH (06:34)
[2023-05-15] MEDS: INSULIN SLIDING SCALE (NOVOLOG) 1 VIAL SQ SCH ×2 (06:35→11:26)
[2023-05-15] MEDS ORDERED: GABAPENTIN 100 MG CAPSULE PO SCH (09:29)
[2023-05-15] MEDS: PANTOPRAZOLE 40 MG TABLET PO SCH (09:32)
[2023-05-15] MEDS: amLODIPine BESYLATE 10 MG TABLET (FP) PO SCH (09:32)
[2023-05-15] MEDS: METOPROLOL TARTRATE 50 MG TABLET (FP) PO SCH (09:32)
[2023-05-15] MEDS: hydrALAZINE HCL 25 MG TABLET (FP) PO SCH (09:32)
[2023-05-15] MEDS: LIDOCAINE 5% TOPICAL PATCH TP SCH (09:33)
[2023-05-15] MEDS ORDERED: POLYETHYLENE GLYCOL (HEALTHYLAX) 3350 17 GM PACKET PO SCH (10:00)
== END 2023-05-15 01:05 | disposition home or self-care (01) | DRG 683 ==
LOC: JER 16:56 → JERBED 05-13 00:36 → J8W 05-13 16:36
PROVIDERS: ADMIT Internal Medicine; ATTEND Nurse Practitioner Acute Care
DX: I12.9 Hypertensive chronic kidney disease with stage 1 through stage 4 chronic kidney disease, or unspecified chronic kidney disease (principal); N17.9 Acute kidney failure, unspecified; E11.22 Type 2 diabetes mellitus with diabetic chronic kidney disease; N18.2 Chronic kidney disease, stage 2 (mild); R07.9 Chest pain, unspecified; E78.5 Hyperlipidemia, unspecified; D64.9 Anemia, unspecified; M79.622 Pain in left upper arm
CPT/HCPCS: 36415; 71045-TC-FY; 72128-TC; 76775-TC; 80053; 81003; 82436; 82550; 82570; 82962; 83036; 83735; 83935; 84100; 84300; 84484; 85025; 85610; 85730; 93005; 93010; 99285-25; J1644

== ENCOUNTER 2023-08-24 13:57 | Emergency (ER) | payer OTHER ==
[2023-08-24 14:12] VITALS: TEMP 97.5; BMI 38.7
[2023-08-24] MEDS ORDERED: ACETAMINOPHEN 500 MG TABLET (FP) PO ONE (14:30)
[2023-08-24] MEDS ORDERED: ACETAMINOPHEN 325 MG TABLET (FP) ONE (14:40)
[2023-08-24 16:21] VITALS: PULSE 61
[2023-08-24 17:10] VITALS: BP 156/81; RESP 20
== END 2023-08-24 17:11 | disposition home or self-care (01) ==
LOC: JER 13:57
DX: S00.03XA Contusion of scalp, initial encounter (principal); S20.229A Contusion of unspecified back wall of thorax, initial encounter; W01.198A Fall on same level from slipping, tripping and stumbling with subsequent striking against other object, initial encounter; Y92.9 Unspecified place or not applicable
CPT/HCPCS: 70450-TC; 71045-TC-FY; 72125-TC; 72128-TC; 72170-TC-FY; 99284-25

== ENCOUNTER 2023-12-15 14:38 | Observation (INO) | payer OTHER ==
[2023-12-15 15:56] LABS: BASO % 0.7 % (0-2.0); EOS % 4.3 % (0-4.5); HEMATOCRIT 32.9 % (32.4-45.2); HEMOGLOBIN 10.8 GM/dL (10.7-15.3); LYMPH % 30.2 % (8-40); MCH 28.2 pg (25.7-33.7); MCHC 32.7 g/dl (32.0-36.0); MEAN CELL VOLUME 86.1 fl (80-96); MEAN PLT VOLUME 6.7 fl (7.5-11.1); MONO % 8.2 % (3.8-10.2); NEUT % 56.6 % (42.8-82.8); PLATELET COUNT 361 10^3/uL (134-434); RBC 3.82 M/mm3 (3.60-5.2); RDW 14.5 % (11.6-15.6); WHITE BLOOD COUNT 7.2 K/mm3 (4.0-10.0)
[2023-12-15 16:12] LABS: INR 0.97 (0.83-1.09); PROTHROMBIN TIME (PATIENT) 11.2 SEC (9.7-13.0)
[2023-12-15 16:27] LABS: POTASSIUM 4.8 mmol/L (3.5-5.1)
[2023-12-15 16:30] LABS: CALCIUM 8.5 mg/dL (8.5-10.1)
[2023-12-15 16:31] LABS: ALBUMIN 3.4 g/dl (3.4-5.0); BLOOD UREA NITROGEN 57.6 mg/dL (7-18)
[2023-12-15 16:34] LABS: CREATININE 2.5 mg/dL (0.55-1.3)
[2023-12-15 16:36] LABS: BILIRUBIN,TOTAL 0.3 mg/dL (0.2-1); TOT PROT 7.8 g/dl (6.4-8.2)
[2023-12-15 16:39] LABS: N-TERMINAL BNP 752.5 pg/ml (5-450)
[2023-12-15] MEDS: SODIUM CHLORIDE 0.9% 500 ML INFUS.BAG IV ONE (18:17)
[2023-12-15] MEDS: HEPARIN NA (PORCINE) 5,000 UNITS/ML 1ML VIAL SQ SCH (21:52)
[2023-12-15] MEDS: INSULIN ASPART SLIDING SCALE (NOVOLOG) 1 VIAL SQ SCH (21:53)
[2023-12-15] MEDS ORDERED: CHOLECALCIFEROL (VIT D3) 5000 UNITS (125 MCG) CAP PO SCH (22:00)
[2023-12-15] MEDS: ATORVASTATIN CA 20 MG TABLET (FP) PO SCH (22:04)
[2023-12-15] MEDS: SODIUM CHLORIDE 1,000 ML IV SCH (22:04)
[2023-12-15] MEDS: POLYETHYLENE GLYCOL (HEALTHYLAX) 3350 17 GM PACKET PO SCH (22:04)
[2023-12-15] MEDS: hydrALAZINE HCL 25 MG TABLET (FP) PO SCH (22:04)
[2023-12-15] MEDS: METOPROLOL TARTRATE 50 MG TABLET (FP) PO SCH (22:04)
[2023-12-16 04:04] LABS: EPI CELLS 10 /uL (0-25.1); HYALINE CASTS 0 /uL (0-3.1); URINE APPEARANCE CLEAR; URINE BACTERIA 333 /uL (0-1359); URINE BILIRUBIN NEGATIVE (NEGATIVE); URINE COLOR YELLOW; URINE GLUCOSE (UA) TRACE (NEGATIVE); URINE KETONE NEGATIVE (NEGATIVE); URINE LEUK ESTERASE TRACE (NEGATIVE); URINE NITRITE NEGATIVE (NEGATIVE); URINE PROTEIN 2+ (NEGATIVE); URINE RBC 12 /uL (0-23.9); URINE UROBILINOGEN 0.2 mg/dL (0.2-1.0); URINE WBC 42 /uL (0-25.8)
[2023-12-16] MEDS ORDERED: PATIENT'S OWN MEDICATION (NON-FORMULARY) (Linaclotide [Linzess] 72 MCG Capsule) PO SCH (10:00)
[2023-12-16 10:04] LABS: BASO % 0.7 % (0-2.0); EOS % 3.5 % (0-4.5); HEMOGLOBIN 10.6 GM/dL (10.7-15.3); LYMPH % 36.6 % (8-40); MCH 29.1 pg (25.7-33.7); MCHC 34.2 g/dl (32.0-36.0); MEAN CELL VOLUME 85.1 fl (80-96); MEAN PLT VOLUME 7.5 fl (7.5-11.1); MONO % 7.8 % (3.8-10.2); NEUT % 51.4 % (42.8-82.8); PLATELET COUNT 347 10^3/uL (134-434); RBC 3.64 M/mm3 (3.60-5.2); RDW 14.5 % (11.6-15.6)
[2023-12-16] MEDS: PANTOPRAZOLE 40 MG TABLET PO SCH (10:11)
[2023-12-16] MEDS: amLODIPine BESYLATE 10 MG TABLET (FP) PO SCH (10:11)
[2023-12-16 10:20] LABS: POTASSIUM 4.5 mmol/L (3.5-5.1)
[2023-12-16 10:27] LABS: BLOOD UREA NITROGEN 54.3 mg/dL (7-18); CALCIUM 8.3 mg/dL (8.5-10.1)
[2023-12-16 10:29] LABS: PHOSPHOROUS 4.3 mg/dL (2.5-4.9)
[2023-12-16 10:30] LABS: BILIRUBIN,TOTAL 0.3 mg/dL (0.2-1); CREATININE 2.3 mg/dL (0.55-1.3); TOT PROT 7.1 g/dl (6.4-8.2)
[2023-12-16 10:35] LABS: CHOLESTEROL 172 mg/dL (50-200)
[2023-12-16 10:37] LABS: LDL CHOLESTEROL (ONLY SJRH) 89 mg/dL (5-100)
[2023-12-16 10:39] LABS: HDL CHOLESTEROL 58 mg/dL (40-60)
[2023-12-16] MEDS ORDERED: traMADol HCL 50 MG TABLET PO PRN (13:06)
[2023-12-16 19:48] VITALS: RESP 18
[2023-12-17 10:01] VITALS: BP 172/69; PULSE 66; TEMP 97.7
[2023-12-17 13:56] VITALS: BMI 26.4
== END 2023-12-17 13:50 | disposition home or self-care (01) ==
LOC: JER 14:38 → JERBED 17:48 → J5S 20:02
PROVIDERS: ADMIT Internal Medicine
PROC: 3E023GC Introduction of Other Therapeutic Substance into Muscle, Percutaneous Approach (ICD-10-PCS; principal; 2023-12-15)
PROC: 3E013VG Introduction of Insulin into Subcutaneous Tissue, Percutaneous Approach (ICD-10-PCS; 2023-12-15)
PROC: 3E0337Z Introduction of Electrolytic and Water Balance Substance into Peripheral Vein, Percutaneous Approach (ICD-10-PCS; 2023-12-15)
DX: N17.9 Acute kidney failure, unspecified (principal); I12.9 Hypertensive chronic kidney disease with stage 1 through stage 4 chronic kidney disease, or unspecified chronic kidney disease; N18.4 Chronic kidney disease, stage 4 (severe); E11.22 Type 2 diabetes mellitus with diabetic chronic kidney disease; D64.9 Anemia, unspecified; G89.29 Other chronic pain; M54.9 Dorsalgia, unspecified; I82.890 Acute embolism and thrombosis of other specified veins; Z29.89 Encounter for other specified prophylactic measures; Z95.0 Presence of cardiac pacemaker; N28.9 Disorder of kidney and ureter, unspecified
CPT/HCPCS: 36415; 71045-TC-FY; 71101-TC-LT-FY; 76705-TC; 80053; 80061; 81003; 82550; 82962; 82977; 83036; 83735; 83880; 84100; 84443; 84484; 85025; 85610; 85730; 93005; 93010; 93306-TC; 93970-TC; 96372; 99285-25; G0378; J1644

== ENCOUNTER 2023-12-24 14:46 | Inpatient (IN) | payer OTHER ==
[2023-12-24 15:23] VITALS: BMI 27.1
[2023-12-24 16:21] LABS: HEMATOCRIT 29.5 % (32.4-45.2); HEMOGLOBIN 9.8 GM/dL (10.7-15.3); MCH 28.6 pg (25.7-33.7); MCHC 33.4 g/dl (32.0-36.0); MEAN CELL VOLUME 85.7 fl (80-96); MEAN PLT VOLUME 7.4 fl (7.5-11.1); PLATELET COUNT 330 10^3/uL (134-434); RBC 3.44 M/mm3 (3.60-5.2); RDW 14.8 % (11.6-15.6); WHITE BLOOD COUNT 8.9 K/mm3 (4.0-10.0)
[2023-12-24 16:23] LABS: EPI CELLS 10 /uL (0-25.1); HYALINE CASTS 1 /uL (0-3.1); PH,URINE 5.5 (5.0-8.0); URINE APPEARANCE CLEAR; URINE BACTERIA 53 /uL (0-1359); URINE BILIRUBIN NEGATIVE (NEGATIVE); URINE COLOR YELLOW; URINE GLUCOSE (UA) NEGATIVE (NEGATIVE); URINE KETONE NEGATIVE (NEGATIVE); URINE LEUK ESTERASE TRACE (NEGATIVE); URINE NITRITE NEGATIVE (NEGATIVE); URINE PROTEIN 2+ (NEGATIVE); URINE RBC 17 /uL (0-23.9); URINE UROBILINOGEN 0.2 mg/dL (0.2-1.0); URINE WBC 54 /uL (0-25.8)
[2023-12-24 16:26] LABS: INR 1.03 (0.83-1.09)
[2023-12-24 16:38] LABS: POTASSIUM 4.9 mmol/L (3.5-5.1)
[2023-12-24 16:40] LABS: CALCIUM 8.4 mg/dL (8.5-10.1)
[2023-12-24 16:41] LABS: ALBUMIN 3.4 g/dl (3.4-5.0); BLOOD UREA NITROGEN 68.9 mg/dL (7-18)
[2023-12-24 16:44] LABS: CREATININE 2.8 mg/dL (0.55-1.3)
[2023-12-24 16:45] LABS: BILIRUBIN,TOTAL 0.4 mg/dL (0.2-1)
[2023-12-24 16:46] LABS: TOT PROT 7.8 g/dl (6.4-8.2)
[2023-12-24] MEDS ORDERED: PIPERACILLIN/TAZOB 4.5 GM 4.5 GM/100 ML BAG IVPB ONE (18:12)
[2023-12-24] MEDS: PIPERACILLIN/TAZOB 4.5 GM 4.5 GM in DEXTROSE 5%-WATER 100 ML IVPB ONE (18:27)
[2023-12-24] MEDS ORDERED: FUROSEMIDE 40 MG/4 ML INJECTABLE VIAL ONE (18:38)
[2023-12-24] MEDS ORDERED: CEFTRIAXONE 1 GM/50 ML BAG ONE (18:45)
[2023-12-24] MEDS: CEFTRIAXONE 1 GM in DEXTROSE 5%-WATER - 50 ML IVPB SCH (18:57)
[2023-12-24] MEDS: FUROSEMIDE 40 MG/4 ML INJECTABLE VIAL IVPUSH ONE (18:57)
[2023-12-24 19:57] LABS: N-TERMINAL BNP 3071.7 pg/ml (5-450)
[2023-12-24] MEDS: HEPARIN NA (PORCINE) 5,000 UNITS/ML 1ML VIAL SQ SCH (22:11)
[2023-12-24] MEDS: METOPROLOL TARTRATE 50 MG TABLET (FP) PO SCH (22:11)
[2023-12-24] MEDS: ATORVASTATIN CA 20 MG TABLET (FP) PO SCH (22:11)
[2023-12-24] MEDS: hydrALAZINE HCL 25 MG TABLET (FP) PO SCH (22:11)
[2023-12-24] MEDS: INSULIN (LEVEMIR) 100 UNITS/ML UNITS SQ SCH (22:13)
[2023-12-25] MEDS: INSULIN ASPART SLIDING SCALE (NOVOLOG) 1 VIAL SQ SCH (06:04)
[2023-12-25 08:35] LABS: BASO % 0.9 % (0-2.0); EOS % 3.4 % (0-4.5); HEMATOCRIT 27.3 % (32.4-45.2); HEMOGLOBIN 9.1 GM/dL (10.7-15.3); LYMPH % 23.7 % (8-40); MCH 28.3 pg (25.7-33.7); MCHC 33.3 g/dl (32.0-36.0); MEAN CELL VOLUME 84.9 fl (80-96); MEAN PLT VOLUME 8.2 fl (7.5-11.1); PLATELET COUNT 296 10^3/uL (134-434); RBC 3.21 M/mm3 (3.60-5.2); WHITE BLOOD COUNT 7.2 K/mm3 (4.0-10.0)
[2023-12-25 08:45] LABS: CHLORIDE 106 mmol/L (98-107); SODIUM 137 mmol/L (136-145)
[2023-12-25 08:48] LABS: ALBUMIN 3.1 g/dl (3.4-5.0); ANION GAP 6 mmol/L (4-13); BLOOD UREA NITROGEN 63.3 mg/dL (7-18); CALCIUM 8.2 mg/dL (8.5-10.1); CO2 25 mmol/L (21-32); MAGNESIUM 1.9 mg/dL (1.8-2.4)
[2023-12-25 08:51] LABS: CREATININE 3.1 mg/dL (0.55-1.3); SGOT/AST 40 U/L (15-37); SGPT/ALT 37 U/L (13-61)
[2023-12-25 08:52] LABS: PHOSPHOROUS 4.7 mg/dL (2.5-4.9)
[2023-12-25 08:53] LABS: BILIRUBIN,TOTAL 0.4 mg/dL (0.2-1)
[2023-12-25 08:54] LABS: ALK PHOS 206 U/L (45-117)
[2023-12-25 08:55] LABS: GLUCOSE,RANDOM 43 mg/dL (74-106)
[2023-12-25] MEDS: POLYETHYLENE GLYCOL (HEALTHYLAX) 3350 17 GM PACKET PO SCH (09:48)
[2023-12-25] MEDS: amLODIPine BESYLATE 10 MG TABLET (FP) PO SCH (09:52)
[2023-12-25] MEDS: PANTOPRAZOLE 40 MG TABLET PO SCH (09:52)
[2023-12-25] MEDS: CYCLOBENZAPRINE HCL 5 MG TABLET PO SCH (09:52)
[2023-12-25] MEDS: FUROSEMIDE 40 MG/4 ML INJECTABLE VIAL IVPUSH SCH (14:27)
[2023-12-25] MEDS: ACETAMINOPHEN 1000 MG/100 ML BAG IVPB ONE (17:06)
[2023-12-26] MEDS: INSULIN (LEVEMIR) 100 UNITS/ML UNITS SQ SCH (06:38)
[2023-12-26 06:47] LABS: EOS % 4.7 % (0-4.5); HEMATOCRIT 25.8 % (32.4-45.2); HEMOGLOBIN 8.5 GM/dL (10.7-15.3); LYMPH % 29.2 % (8-40); MCH 28.4 pg (25.7-33.7); MCHC 32.9 g/dl (32.0-36.0); MEAN CELL VOLUME 86.3 fl (80-96); MEAN PLT VOLUME 7.6 fl (7.5-11.1); MONO % 17.3 % (3.8-10.2); NEUT % 47.8 % (42.8-82.8); PLATELET COUNT 293 10^3/uL (134-434); RBC 2.99 M/mm3 (3.60-5.2); RDW 14.5 % (11.6-15.6); WHITE BLOOD COUNT 6.2 K/mm3 (4.0-10.0)
[2023-12-26 07:01] LABS: POTASSIUM 4.7 mmol/L (3.5-5.1)
[2023-12-26 07:05] LABS: ALBUMIN 2.8 g/dl (3.4-5.0); CALCIUM 7.9 mg/dL (8.5-10.1); MAGNESIUM 2.1 mg/dL (1.8-2.4)
[2023-12-26 07:08] LABS: CREATININE 3.2 mg/dL (0.55-1.3); PHOSPHOROUS 5.5 mg/dL (2.5-4.9)
[2023-12-26 07:10] LABS: BILIRUBIN,TOTAL 0.3 mg/dL (0.2-1); TOT PROT 6.3 g/dl (6.4-8.2)
[2023-12-26] MEDS: LIDOCAINE 4% PATCH TP SCH (12:33)
[2023-12-26] MEDS: hydrALAZINE HCL 25 MG TABLET (FP) PO SCH (14:34)
[2023-12-26] MEDS: guaiFENesin 600 MG TABLET.ER (FP) PO SCH (15:34)
[2023-12-26] MEDS: LIDOCAINE PATCH REMOVAL MC SCH (21:55)
[2023-12-27 07:17] LABS: BASO % 1.1 % (0-2.0); EOS % 5.5 % (0-4.5); HEMATOCRIT 27.6 % (32.4-45.2); LYMPH % 29.2 % (8-40); MCH 28.1 pg (25.7-33.7); MCHC 32.7 g/dl (32.0-36.0); MEAN CELL VOLUME 85.8 fl (80-96); MEAN PLT VOLUME 7.4 fl (7.5-11.1); MONO % 10.9 % (3.8-10.2); NEUT % 53.3 % (42.8-82.8); PLATELET COUNT 332 10^3/uL (134-434); RBC 3.21 M/mm3 (3.60-5.2); RDW 14.8 % (11.6-15.6); WHITE BLOOD COUNT 7.9 K/mm3 (4.0-10.0)
[2023-12-27 07:34] LABS: CALCIUM 8.3 mg/dL (8.5-10.1)
[2023-12-27 07:35] LABS: BLOOD UREA NITROGEN 61.8 mg/dL (7-18)
[2023-12-27 07:38] LABS: CREATININE 2.9 mg/dL (0.55-1.3)
[2023-12-27] MEDS: FUROSEMIDE 40 MG/4 ML INJECTABLE VIAL IVPUSH ONE (09:43)
[2023-12-28 14:49] VITALS: PULSE 74; RESP 20; TEMP 98.6
[2023-12-28] MEDS ORDERED: hydrALAZINE HCL 25 MG TABLET (FP) PO SCH (15:06)
[2023-12-28] MEDS: hydrALAZINE HCL 25 MG TABLET (FP) PO ONE (15:29)
[2023-12-28 17:18] VITALS: BP 158/100
== END 2023-12-28 18:56 | disposition home health service (06) | DRG 291 ==
LOC: JER 14:46 → JERBED 17:48 → J4W 19:37 → OBSVTOIN 12-25 17:20
PROVIDERS: ATTEND Internal Medicine
DX: I13.0 Hypertensive heart and chronic kidney disease with heart failure and stage 1 through stage 4 chronic kidney disease, or unspecified chronic kidney disease (principal); I50.33 Acute on chronic diastolic (congestive) heart failure; N18.4 Chronic kidney disease, stage 4 (severe); N17.9 Acute kidney failure, unspecified; N39.0 Urinary tract infection, site not specified; K21.9 Gastro-esophageal reflux disease without esophagitis; I25.10 Atherosclerotic heart disease of native coronary artery without angina pectoris; E78.00 Pure hypercholesterolemia, unspecified; Z95.0 Presence of cardiac pacemaker; M54.9 Dorsalgia, unspecified; E11.22 Type 2 diabetes mellitus with diabetic chronic kidney disease; E78.5 Hyperlipidemia, unspecified; D64.9 Anemia, unspecified
CPT/HCPCS: 0241U-QW; 36415; 71045-TC-FY; 80048; 80053; 81003; 82607; 82962; 83735; 83880; 84100; 84484; 85025; 85027; 85610; 87040; 87086; 93005; 93010; 97116-GP; 97162-GP; 99285-25; G0378; J0131; J1644

== ENCOUNTER 2024-05-01 10:12 | Emergency (ER) | payer OTHER ==
[2024-05-01 10:35] VITALS: BP 147/59; PULSE 64; RESP 16; TEMP 97; BMI 36.0
[2024-05-01] MEDS ORDERED: ACETAMINOPHEN 500 MG TABLET (FP) ONE (11:40)
[2024-05-01] MEDS: ACETAMINOPHEN 500 MG TABLET (FP) PO ONE (11:47)
== END 2024-05-01 15:06 | disposition home or self-care (01) ==
LOC: JER 10:12
DX: M25.551 Pain in right hip (principal); M79.604 Pain in right leg; W19.XXXA Unspecified fall, initial encounter
CPT/HCPCS: 72100-TC-FY; 72170-TC-FY; 73502-TC-RT-FY; 82962; 99284-25

== ENCOUNTER 2024-09-13 16:27 | Inpatient (IN) | payer OTHER ==
[2024-09-13 17:11] VITALS: BMI 24.2
[2024-09-13 17:42] LABS: BASO % 0.7 % (0-2.0); EOS % 1.1 % (0-4.5); HEMATOCRIT 26.3 % (32.4-45.2); HEMOGLOBIN 8.8 GM/dL (10.7-15.3); LYMPH % 4.2 % (8-40); MCHC 33.3 g/dl (32.0-36.0); MEAN PLT VOLUME 6.8 fl (7.5-11.1); MONO % 8.3 % (3.8-10.2); NEUT % 85.7 % (42.8-82.8); PLATELET COUNT 328 10^3/uL (134-434); RBC 3.14 M/mm3 (3.60-5.2); RDW 14.8 % (11.6-15.6); WHITE BLOOD COUNT 10.6 K/mm3 (4.0-10.0)
[2024-09-13 17:48] LABS: INR 1.04 (0.83-1.09); PROTHROMBIN TIME (PATIENT) 11.7 SEC (9.7-13.0)
[2024-09-13 17:51] LABS: ACTIVATED PTT 34.8 SECONDS (25.2-36.5)
[2024-09-13 18:00] LABS: CHLORIDE 108 mmol/L (98-107); SODIUM 139 mmol/L (136-145)
[2024-09-13 18:01] LABS: POTASSIUM 6.2 mmol/L (3.5-5.1)
[2024-09-13 18:02] LABS: CALCIUM 8.4 mg/dL (8.5-10.1)
[2024-09-13 18:03] LABS: ALBUMIN 3.4 g/dl (3.4-5.0); ANION GAP 6 mmol/L (4-13); BLOOD UREA NITROGEN 63.9 mg/dL (7-18); CO2 24 mmol/L (21-32); GLUCOSE,RANDOM 201 mg/dL (74-106)
[2024-09-13 18:06] LABS: CREATININE 2.9 mg/dL (0.55-1.3); SGOT/AST 102 U/L (15-37); SGPT/ALT 55 U/L (13-61)
[2024-09-13 18:07] LABS: BILIRUBIN,TOTAL 0.4 mg/dL (0.2-1); TOT PROT 7.5 g/dl (6.4-8.2)
[2024-09-13 18:08] LABS: ALK PHOS 244 U/L (45-117)
[2024-09-13 18:57] LABS: CHOLESTEROL 165 mg/dL (50-200)
[2024-09-13 18:59] LABS: LDL CHOLESTEROL (ONLY SJRH) 68 mg/dL (5-100)
[2024-09-13 19:00] LABS: HDL CHOLESTEROL 80 mg/dL (40-60)
[2024-09-13] MEDS ORDERED: CALCIUM GLUCONATE 10% - 1,000 MG/10 ML VIAL ONE (19:27)
[2024-09-13] MEDS ORDERED: OSELTAMIVIR PHOSPHATE 30 MG CAPSULE ONE (19:27)
[2024-09-13] MEDS ORDERED: SODIUM ZIRCONIUM CYCLOSILICATE (LOKELMA) 5 GM PACKET ONE (19:27)
[2024-09-13] MEDS ORDERED: DEXTROSE 50%-WATER 25 GM/50 ML DISP.SYRIN ONE (19:28)
[2024-09-13] MEDS ORDERED: INSULIN REGULAR HUMAN 100 UNITS/ML *VIAL ONE (19:28)
[2024-09-13] MEDS ORDERED: ALBUTEROL SO4 0.083% IH SOL 2.5 MG/3 ML VIAL.NEB. NEB ONE (19:29)
[2024-09-13] MEDS: ALBUTEROL SO4 0.083% IH SOL 2.5 MG/3 ML VIAL.NEB. NEB ONE (19:33)
[2024-09-13] MEDS: DEXTROSE 50%-WATER - 25 GM/50 ML VIAL IVPUSH ONE (19:33)
[2024-09-13] MEDS: OSELTAMIVIR PHOSPHATE 30 MG CAPSULE PO ONE (19:33)
[2024-09-13] MEDS: INSULIN REGULAR HUMAN 100 UNITS/ML *VIAL IVPUSH ONE (19:33)
[2024-09-13] MEDS: SODIUM ZIRCONIUM CYCLOSILICATE (LOKELMA) 5 GM PACKET PO ONE (19:33)
[2024-09-13] MEDS: CALCIUM GLUCONATE 10% - 1,000 MG/10 ML VIAL IVPB ONE (19:33)
[2024-09-13] MEDS: ASPIRIN COATED 81 MG TABLET.EC PO SCH (19:35)
[2024-09-13] MEDS ORDERED: ASPIRIN COATED 81 MG TABLET.EC ONE (19:35)
[2024-09-13 22:42] LABS: POTASSIUM 5.3 mmol/L (3.5-5.1)
[2024-09-13 22:44] LABS: BLOOD UREA NITROGEN 62.4 mg/dL (7-18); CALCIUM 8.8 mg/dL (8.5-10.1)
[2024-09-13 22:48] LABS: CREATININE 2.9 mg/dL (0.55-1.3)
[2024-09-14] MEDS ORDERED: SODIUM ZIRCONIUM CYCLOSILICATE (LOKELMA) 10 GM PACKET ONE (02:29)
[2024-09-14] MEDS: SODIUM CHLORIDE 1,000 ML IV SCH (02:46)
[2024-09-14] MEDS: SODIUM ZIRCONIUM CYCLOSILICATE (LOKELMA) 5 GM PACKET PO ONE (02:47)
[2024-09-14] MEDS: INSULIN ASPART SLIDING SCALE (NOVOLOG) 1 VIAL SQ SCH (06:54)
[2024-09-14] MEDS: INSULIN (LEVEMIR) 100 UNITS/ML UNITS SQ SCH (06:54)
[2024-09-14] MEDS: hydrALAZINE HCL 50 MG TABLET (FP) PO SCH (06:55)
[2024-09-14] MEDS: HEPARIN NA (PORCINE) 5,000 UNITS/ML 1ML VIAL SQ SCH (06:55)
[2024-09-14 07:44] LABS: BASO % 0.7 % (0-2.0); EOS % 1.5 % (0-4.5); HEMATOCRIT 26.7 % (32.4-45.2); HEMOGLOBIN 8.7 GM/dL (10.7-15.3); LYMPH % 6.3 % (8-40); MCH 27.9 pg (25.7-33.7); MCHC 32.4 g/dl (32.0-36.0); MEAN CELL VOLUME 86.2 fl (80-96); MEAN PLT VOLUME 7.1 fl (7.5-11.1); MONO % 8.6 % (3.8-10.2); NEUT % 82.9 % (42.8-82.8); PLATELET COUNT 330 10^3/uL (134-434)
[2024-09-14 08:06] LABS: CALCIUM 8.4 mg/dL (8.5-10.1)
[2024-09-14 08:07] LABS: ALBUMIN 3.4 g/dl (3.4-5.0)
[2024-09-14 08:09] LABS: POTASSIUM 4.9 mmol/L (3.5-5.1)
[2024-09-14 08:11] LABS: CREATININE 2.7 mg/dL (0.55-1.3); PHOSPHOROUS 4.7 mg/dL (2.5-4.9)
[2024-09-14 08:12] LABS: BILIRUBIN,TOTAL 0.4 mg/dL (0.2-1); TOT PROT 7.5 g/dl (6.4-8.2)
[2024-09-14 08:47] LABS: N-TERMINAL BNP 8030.8 pg/ml (5-450)
[2024-09-14] MEDS: METOPROLOL TARTRATE 50 MG TABLET (FP) PO SCH (09:45)
[2024-09-14] MEDS: PANTOPRAZOLE 40 MG TABLET PO SCH (09:45)
[2024-09-14] MEDS: SODIUM ZIRCONIUM CYCLOSILICATE (LOKELMA) 5 GM PACKET PO SCH (09:45)
[2024-09-14] MEDS: amLODIPine BESYLATE 10 MG TABLET (FP) PO SCH (09:45)
[2024-09-14] MEDS: ASPIRIN COATED 81 MG TABLET.EC PO SCH (09:45)
[2024-09-14] MEDS ORDERED: METOPROLOL TARTRATE 50 MG TABLET (FP) PO SCH (10:00)
[2024-09-14] MEDS ORDERED: amLODIPine BESYLATE 10 MG TABLET (FP) PO SCH (10:00)
[2024-09-14] MEDS: OSELTAMIVIR PHOSPHATE 30 MG CAPSULE PO SCH (11:07)
[2024-09-14] MEDS: hydrALAZINE HCL 20 MG/ML VIAL IVPUSH ONE (20:29)
[2024-09-15 00:23] LABS: EPI CELLS 13 /uL (0-25.1); HYALINE CASTS 0 /uL (0-3.1); PH,URINE 5.5 (5.0-8.0); URINE APPEARANCE CLEAR; URINE BACTERIA 26 /uL (0-1359); URINE BILIRUBIN NEGATIVE (NEGATIVE); URINE COLOR YELLOW; URINE GLUCOSE (UA) TRACE (NEGATIVE); URINE KETONE NEGATIVE (NEGATIVE); URINE LEUK ESTERASE NEGATIVE (NEGATIVE); URINE NITRITE NEGATIVE (NEGATIVE); URINE PROTEIN 3+ (NEGATIVE); URINE RBC 26 /uL (0-23.9); URINE UROBILINOGEN 0.2 mg/dL (0.2-1.0); URINE WBC 8 /uL (0-25.8)
[2024-09-15 08:17] LABS: HEMATOCRIT 25.6 % (32.4-45.2); HEMOGLOBIN 8.7 GM/dL (10.7-15.3); MCH 28.7 pg (25.7-33.7); MCHC 33.8 g/dl (32.0-36.0); MEAN PLT VOLUME 7.6 fl (7.5-11.1); PLATELET COUNT 288 10^3/uL (134-434); RBC 3.02 M/mm3 (3.60-5.2); RDW 14.8 % (11.6-15.6); WHITE BLOOD COUNT 8.8 K/mm3 (4.0-10.0)
[2024-09-15 08:29] LABS: POTASSIUM 4.6 mmol/L (3.5-5.1)
[2024-09-15 08:31] LABS: CALCIUM 8.2 mg/dL (8.5-10.1)
[2024-09-15 08:32] LABS: BLOOD UREA NITROGEN 63.8 mg/dL (7-18); MAGNESIUM 2.1 mg/dL (1.8-2.4)
[2024-09-15 08:35] LABS: CREATININE 2.7 mg/dL (0.55-1.3); PHOSPHOROUS 4.7 mg/dL (2.5-4.9)
[2024-09-15 08:36] LABS: BILIRUBIN,TOTAL 0.4 mg/dL (0.2-1)
[2024-09-15 08:37] LABS: TOT PROT 6.7 g/dl (6.4-8.2)
[2024-09-15] MEDS: FERROUS SO4 325 MG TABLET (FP) PO SCH (10:32)
[2024-09-15] MEDS: ACETAMINOPHEN 325 MG TABLET (FP) PO PRN (17:45)
[2024-09-16 10:15] LABS: HEMATOCRIT 25.4 % (32.4-45.2); HEMOGLOBIN 8.3 GM/dL (10.7-15.3); MCH 27.6 pg (25.7-33.7); MCHC 32.8 g/dl (32.0-36.0); MEAN CELL VOLUME 84.1 fl (80-96); MEAN PLT VOLUME 7.1 fl (7.5-11.1); PLATELET COUNT 286 10^3/uL (134-434); RBC 3.02 M/mm3 (3.60-5.2); RDW 14.9 % (11.6-15.6)
[2024-09-16 10:44] LABS: POTASSIUM 4.4 mmol/L (3.5-5.1)
[2024-09-16 10:46] LABS: ALBUMIN 2.7 g/dl (3.4-5.0); BLOOD UREA NITROGEN 71.8 mg/dL (7-18); CALCIUM 7.9 mg/dL (8.5-10.1)
[2024-09-16 10:50] LABS: PHOSPHOROUS 3.7 mg/dL (2.5-4.9)
[2024-09-16 10:51] LABS: BILIRUBIN,TOTAL 0.4 mg/dL (0.2-1); TOT PROT 6.6 g/dl (6.4-8.2)
[2024-09-16] MEDS: MAGNESIUM HYDROX 2400MG/30ML ORAL SUSPENSION 30 ML CUP PO PRN (16:05)
[2024-09-16] MEDS: METOPROLOL TARTRATE 25 MG TABLET (FP) PO ONE (18:35)
[2024-09-16] MEDS: hydrALAZINE HCL 50 MG TABLET (FP) PO ONE (18:35)
[2024-09-16] MEDS: ACETAMINOPHEN 325 MG TABLET (FP) PO PRN (21:52)
[2024-09-16] MEDS: METOPROLOL TARTRATE 50 MG TABLET (FP) PO SCH (21:52)
[2024-09-18 07:44] LABS: POTASSIUM 4.8 mmol/L (3.5-5.1)
[2024-09-18 07:51] LABS: BLOOD UREA NITROGEN 76.8 mg/dL (7-18); MAGNESIUM 2.2 mg/dL (1.8-2.4)
[2024-09-18 07:55] LABS: CREATININE 3.2 mg/dL (0.55-1.3); PHOSPHOROUS 3.4 mg/dL (2.5-4.9)
[2024-09-18] MEDS: hydrALAZINE HCL 50 MG TABLET (FP) PO ONE (10:58)
[2024-09-18 14:04] VITALS: BP 149/60; PULSE 64; RESP 18; TEMP 98.4
[2024-09-18] MEDS: hydrALAZINE HCL 50 MG TABLET (FP) PO SCH (14:11)
== END 2024-09-18 18:23 | disposition home or self-care (01) | DRG 193 ==
LOC: JER 16:27 → JERBED 19:50 → J4W 09-14 05:41
PROVIDERS: ADMIT Internal Medicine; ATTEND Internal Medicine
DX: J10.1 Influenza due to other identified influenza virus with other respiratory manifestations (principal); G93.41 Metabolic encephalopathy; I24.89 Other forms of acute ischemic heart disease; N17.9 Acute kidney failure, unspecified; I13.0 Hypertensive heart and chronic kidney disease with heart failure and stage 1 through stage 4 chronic kidney disease, or unspecified chronic kidney disease; N18.4 Chronic kidney disease, stage 4 (severe); I50.32 Chronic diastolic (congestive) heart failure; E11.22 Type 2 diabetes mellitus with diabetic chronic kidney disease; D50.9 Iron deficiency anemia, unspecified; R29.6 Repeated falls; Z95.0 Presence of cardiac pacemaker; E87.5 Hyperkalemia; M54.9 Dorsalgia, unspecified
CPT/HCPCS: 0241U-QW; 36415; 70450-TC; 71045-TC-FY; 80048; 80053; 80061; 81003; 82550; 82553; 82728; 82962; 83036; 83540; 83550; 83735; 83880; 84100; 84439; 84443; 84484; 85025; 85027; 85045; 85610; 85730; 86850; 86900; 86901; 87086; 93005; 93010; 93306-TC; 94761; 97116-GP; 97162-GP; 99285-25; J1644

== ENCOUNTER 2024-12-08 19:53 | Inpatient (IN) | payer OTHER ==
[2024-12-08] MEDS ORDERED: ACETAMINOPHEN INJECTION 100 ML ONE (21:34)
[2024-12-08] MEDS: ACETAMINOPHEN 1000 MG/100 ML BAG IVPB ONE (21:53)
[2024-12-08 22:10] LABS: ABSOLUTE IMMATURE GRANULOCYTES 0.06 x10^3/uL (0.0-0.031); BASOPHILS # 0.05 x10^3/uL (0.01-0.08); EOSINOPHIL % 2.4 % (0.7-5.8); EOSINOPHILS # 0.13 x10^3/uL (0.04-0.36); HEMATOCRIT 25.3 % (34.1-44.9); HEMOGLOBIN 7.9 g/dL (11.2-15.7); MCHC 31.2 g/dl (32.2-35.5); MEAN CELL VOLUME 83.5 fl (79.4-94.8); MEAN PLT VOLUME 8.9 fl (9.4-12.3); MONOCYTE % 11.1 % (4.7-12.5); PLATELET COUNT 311 x10^3/uL (182-369); RDW 15.8 % (12.5-17.0); VENOUS BASE EXCESS -6.7 mmol/L (-2-2); VENOUS O2 SATURATION 79.3 % (70-80); VENOUS PCO2 38.7 mmHg (38-52); VENOUS PH 7.31 (7.310-7.410)
[2024-12-08 22:21] LABS: INR 0.99 (0.83-1.09); PROTHROMBIN TIME (PATIENT) 10.8 SEC (9.7-13.0)
[2024-12-08 22:24] LABS: ACTIVATED PTT 35.1 SECONDS (25.2-36.5)
[2024-12-08 22:38] LABS: POTASSIUM 5.6 mmol/L (3.5-5.1)
[2024-12-08 22:40] LABS: CALCIUM 7.8 mg/dL (8.5-10.1)
[2024-12-08 22:41] LABS: ALBUMIN 3.1 g/dl (3.4-5.0); BLOOD UREA NITROGEN 48.2 mg/dL (7-18); MAGNESIUM 1.8 mg/dL (1.8-2.4)
[2024-12-08 22:44] LABS: CREATININE 2.8 mg/dL (0.55-1.3)
[2024-12-08 22:45] LABS: BILIRUBIN,TOTAL 0.3 mg/dL (0.2-1); TOT PROT 7.3 g/dl (6.4-8.2)
[2024-12-08 22:49] LABS: N-TERMINAL BNP 3084.3 pg/ml (5-450)
[2024-12-09] MEDS: ALBUTEROL SO4 0.083% IH SOL 2.5 MG/3 ML VIAL.NEB. NEB ONE (01:35)
[2024-12-09] MEDS: INSULIN REGULAR HUMAN 100 UNITS/ML *VIAL IVPUSH ONE (01:35)
[2024-12-09] MEDS: DEXTROSE 50%-WATER - 25 GM/50 ML VIAL IVPUSH ONE (01:35)
[2024-12-09] MEDS: SODIUM ZIRCONIUM CYCLOSILICATE (LOKELMA) 5 GM PACKET PO SCH (01:35)
[2024-12-09] MEDS: FUROSEMIDE 40 MG/4 ML INJECTABLE VIAL IVPUSH ONE (01:36)
[2024-12-09] MEDS ORDERED: ALBUTEROL SO4 0.083% IH SOL 2.5 MG/3 ML VIAL.NEB. NEB ONE (01:36)
[2024-12-09] MEDS ORDERED: DEXTROSE 50%-WATER 25 GM/50 ML DISP.SYRIN ONE (01:37)
[2024-12-09] MEDS ORDERED: SODIUM ZIRCONIUM CYCLOSILICATE (LOKELMA) 10 GM PACKET ONE (01:37)
[2024-12-09] MEDS ORDERED: FUROSEMIDE 40 MG/4 ML INJECTABLE VIAL ONE (01:38)
[2024-12-09] MEDS ORDERED: INSULIN REGULAR HUMAN 100 UNITS/ML *VIAL ONE (01:39)
[2024-12-09] MEDS ORDERED: CALCIUM GLUC IN NACL, ISO-OSM 1 GM/50 ML BAG IVPB ONE (02:02)
[2024-12-09] MEDS: CALCIUM GLUC IN NACL, ISO-OSM 1 GM/50 ML BAG IVPB ONE (02:59)
[2024-12-09] MEDS: FUROSEMIDE 40 MG/4 ML INJECTABLE VIAL IVPUSH SCH (06:34)
[2024-12-09] MEDS: INSULIN ASPART SLIDING SCALE (NOVOLOG) 1 VIAL SQ SCH (06:34)
[2024-12-09] MEDS: hydrALAZINE HCL 50 MG TABLET (FP) PO SCH (06:34)
[2024-12-09 07:30] LABS: ABSOLUTE IMMATURE GRANULOCYTES 0.03 x10^3/uL (0.0-0.031); BASOPHILS # 0.04 x10^3/uL (0.01-0.08); EOSINOPHIL % 3.2 % (0.7-5.8); EOSINOPHILS # 0.14 x10^3/uL (0.04-0.36); HEMATOCRIT 22.9 % (34.1-44.9); HEMOGLOBIN 7.1 g/dL (11.2-15.7); MEAN CELL VOLUME 83.6 fl (79.4-94.8); MONOCYTE # 0.59 x10^3/uL (0.24-0.86); MONOCYTE % 13.4 % (4.7-12.5); PLATELET COUNT 300 x10^3/uL (182-369); RDW 15.7 % (12.5-17.0)
[2024-12-09 07:41] LABS: POTASSIUM 4.5 mmol/L (3.5-5.1)
[2024-12-09 07:52] LABS: BLOOD UREA NITROGEN 48.3 mg/dL (7-18)
[2024-12-09 07:53] LABS: ALBUMIN 2.8 g/dl (3.4-5.0); MAGNESIUM 1.8 mg/dL (1.8-2.4)
[2024-12-09 07:56] LABS: CREATININE 2.6 mg/dL (0.55-1.3); PHOSPHOROUS 5.2 mg/dL (2.5-4.9)
[2024-12-09 07:57] LABS: BILIRUBIN,TOTAL 0.4 mg/dL (0.2-1); TOT PROT 6.4 g/dl (6.4-8.2)
[2024-12-09] MEDS: PANTOPRAZOLE 40 MG TABLET PO SCH (09:12)
[2024-12-09] MEDS: amLODIPine BESYLATE 10 MG TABLET (FP) PO SCH (09:13)
[2024-12-09] MEDS: POLYETHYLENE GLYCOL (HEALTHYLAX) 3350 17 GM PACKET PO SCH (13:43)
[2024-12-09] MEDS: ASPIRIN 81 MG CHEWABLE TABLETS PO SCH (15:51)
[2024-12-09] MEDS: ATORVASTATIN CA 20 MG TABLET (FP) PO SCH (21:19)
[2024-12-09] MEDS: HEPARIN NA (PORCINE) 5,000 UNITS/ML 1ML VIAL SQ SCH (21:19)
[2024-12-10 07:28] LABS: POTASSIUM 4.9 mmol/L (3.5-5.1)
[2024-12-10 07:41] LABS: CALCIUM 8.1 mg/dL (8.5-10.1)
[2024-12-10 07:42] LABS: BLOOD UREA NITROGEN 44.7 mg/dL (7-18)
[2024-12-10 07:44] LABS: BILIRUBIN,TOTAL 0.4 mg/dL (0.2-1)
[2024-12-10 07:45] LABS: CREATININE 2.7 mg/dL (0.55-1.3); TOT PROT 6.7 g/dl (6.4-8.2)
[2024-12-10 07:46] LABS: ABSOLUTE IMMATURE GRANULOCYTES 0.04 x10^3/uL (0.0-0.031); BASOPHILS # 0.06 x10^3/uL (0.01-0.08); EOSINOPHIL % 3.7 % (0.7-5.8); EOSINOPHILS # 0.26 x10^3/uL (0.04-0.36); HEMATOCRIT 23.1 % (34.1-44.9); HEMOGLOBIN 7.5 g/dL (11.2-15.7); MCHC 32.5 g/dl (32.2-35.5); MEAN CELL VOLUME 81.3 fl (79.4-94.8); MEAN PLT VOLUME 9.5 fl (9.4-12.3); MONOCYTE # 0.68 x10^3/uL (0.24-0.86); MONOCYTE % 9.6 % (4.7-12.5); PLATELET COUNT 314 x10^3/uL (182-369); RDW 15.1 % (12.5-17.0)
[2024-12-10] MEDS: LIDOCAINE 4% PATCH TP SCH (10:33)
[2024-12-10 11:52] LABS: Reticulocyte % 2.12 % (0.5-1.7)
[2024-12-10 19:57] LABS: HCV DIAGNOSTIC IN-HOUSE W/RFLX NON-REACTIVE (NONREACTIVE)
[2024-12-10] MEDS: FUROSEMIDE 40 MG TABLET (FP) PO SCH (21:24)
[2024-12-10] MEDS: LIDOCAINE PATCH REMOVAL MC SCH (21:26)
[2024-12-11 11:04] LABS: ABSOLUTE IMMATURE GRANULOCYTES 0.06 x10^3/uL (0.0-0.031); BASOPHILS # 0.06 x10^3/uL (0.01-0.08); EOSINOPHIL % 2.7 % (0.7-5.8); EOSINOPHILS # 0.15 x10^3/uL (0.04-0.36); HEMATOCRIT 22.1 % (34.1-44.9); HEMOGLOBIN 7.1 g/dL (11.2-15.7); MCHC 32.1 g/dl (32.2-35.5); MEAN PLT VOLUME 9.2 fl (9.4-12.3); MONOCYTE # 0.62 x10^3/uL (0.24-0.86); MONOCYTE % 11.1 % (4.7-12.5); PLATELET COUNT 301 x10^3/uL (182-369); RDW 15.2 % (12.5-17.0)
[2024-12-11 11:35] LABS: POTASSIUM 4.2 mmol/L (3.5-5.1)
[2024-12-11 11:38] LABS: ALBUMIN 2.9 g/dl (3.4-5.0); BLOOD UREA NITROGEN 48.5 mg/dL (7-18); CALCIUM 8.1 mg/dL (8.5-10.1); MAGNESIUM 1.6 mg/dL (1.8-2.4)
[2024-12-11 11:43] LABS: BILIRUBIN,TOTAL 0.4 mg/dL (0.2-1); TOT PROT 6.5 g/dl (6.4-8.2)
[2024-12-11] MEDS: METOLAZONE 2.5 MG TABLET (FP) PO ONE (14:35)
[2024-12-11] MEDS: FUROSEMIDE 40 MG/4 ML INJECTABLE VIAL IVPUSH SCH (15:19)
[2024-12-11] MEDS ORDERED: FUROSEMIDE 40 MG TABLET (FP) PO SCH (18:00)
[2024-12-11 19:06] LABS: GLIADIN ANTIBODY IGA 2 units (0-19); TRANSGLUTAMINASE IGG 5 U/mL (0-5)
[2024-12-11 20:06] LABS: IG A QN SERUM. 303 mg/dL (64-422)
[2024-12-12 07:50] LABS: ABSOLUTE IMMATURE GRANULOCYTES 0.04 x10^3/uL (0.0-0.031); BASOPHILS # 0.05 x10^3/uL (0.01-0.08); EOSINOPHIL % 3.4 % (0.7-5.8); EOSINOPHILS # 0.21 x10^3/uL (0.04-0.36); HEMATOCRIT 23.2 % (34.1-44.9); HEMOGLOBIN 7.5 g/dL (11.2-15.7); MCHC 32.3 g/dl (32.2-35.5); MEAN CELL VOLUME 81.1 fl (79.4-94.8); MEAN PLT VOLUME 10.1 fl (9.4-12.3); MONOCYTE # 0.73 x10^3/uL (0.24-0.86); MONOCYTE % 11.8 % (4.7-12.5); PLATELET COUNT 312 x10^3/uL (182-369); RDW 15.2 % (12.5-17.0)
[2024-12-12 08:27] LABS: ALBUMIN 3.1 g/dl (3.4-5.0); CALCIUM 8.3 mg/dL (8.5-10.1); MAGNESIUM 1.8 mg/dL (1.8-2.4)
[2024-12-12 08:29] LABS: CREATININE 3.2 mg/dL (0.55-1.3)
[2024-12-12 08:32] LABS: BILIRUBIN,TOTAL 0.5 mg/dL (0.2-1); TOT PROT 7.1 g/dl (6.4-8.2)
[2024-12-12] MEDS: FUROSEMIDE 40 MG TABLET (FP) PO SCH (13:24)
[2024-12-12] MEDS: MINERAL OIL ENEMA 133 ML ENEMA RC ONE (18:31)
[2024-12-13 07:59] LABS: POTASSIUM 4.3 mmol/L (3.5-5.1)
[2024-12-13 08:05] LABS: BLOOD UREA NITROGEN 51.3 mg/dL (7-18); CALCIUM 8.1 mg/dL (8.5-10.1)
[2024-12-13 08:06] LABS: ALBUMIN 2.8 g/dl (3.4-5.0); MAGNESIUM 1.6 mg/dL (1.8-2.4)
[2024-12-13 08:09] LABS: CREATININE 3.2 mg/dL (0.55-1.3); PHOSPHOROUS 5.8 mg/dL (2.5-4.9)
[2024-12-13 08:10] LABS: BILIRUBIN,TOTAL 0.4 mg/dL (0.2-1); TOT PROT 6.5 g/dl (6.4-8.2)
[2024-12-13] MEDS ORDERED: SODIUM ZIRCONIUM CYCLOSILICATE (LOKELMA) 5 GM PACKET PO SCH (10:00)
[2024-12-13] MEDS: MAGNESIUM 2GM/50ML STERILE WATER IVPB IVPB ONE (12:15)
[2024-12-13 18:02] LABS: ABSOLUTE IMMATURE GRANULOCYTES 0.04 x10^3/uL (0.0-0.031); BASOPHILS # 0.04 x10^3/uL (0.01-0.08); EOSINOPHIL % 2.4 % (0.7-5.8); EOSINOPHILS # 0.15 x10^3/uL (0.04-0.36); HEMATOCRIT 23.6 % (34.1-44.9); HEMOGLOBIN 7.5 g/dL (11.2-15.7); MCHC 31.8 g/dl (32.2-35.5); MEAN CELL VOLUME 84.6 fl (79.4-94.8); MEAN PLT VOLUME 10.4 fl (9.4-12.3); MONOCYTE # 0.66 x10^3/uL (0.24-0.86); MONOCYTE % 10.3 % (4.7-12.5); PLATELET COUNT 247 x10^3/uL (182-369); RDW 15.5 % (12.5-17.0)
[2024-12-13] MEDS: INSULIN GLARGINE (LANTUS) 100 UNITS/ML UNITS SQ SCH (21:52)
[2024-12-14 07:23] LABS: ABSOLUTE IMMATURE GRANULOCYTES 0.05 x10^3/uL (0.0-0.031); BASOPHILS # 0.04 x10^3/uL (0.01-0.08); EOSINOPHIL % 2.9 % (0.7-5.8); EOSINOPHILS # 0.18 x10^3/uL (0.04-0.36); HEMATOCRIT 22.8 % (34.1-44.9); HEMOGLOBIN 7.4 g/dL (11.2-15.7); MCHC 32.5 g/dl (32.2-35.5); MEAN CELL VOLUME 81.1 fl (79.4-94.8); MEAN PLT VOLUME 9.2 fl (9.4-12.3); MONOCYTE # 0.72 x10^3/uL (0.24-0.86); MONOCYTE % 11.4 % (4.7-12.5); PLATELET COUNT 328 x10^3/uL (182-369); RDW 14.8 % (12.5-17.0)
[2024-12-14 07:44] LABS: POTASSIUM 4.3 mmol/L (3.5-5.1)
[2024-12-14 08:01] LABS: BILIRUBIN,TOTAL 0.3 mg/dL (0.2-1); TOT PROT 6.4 g/dl (6.4-8.2)
[2024-12-14 08:02] LABS: CALCIUM 8.4 mg/dL (8.5-10.1); CREATININE 3.3 mg/dL (0.55-1.3)
[2024-12-14 08:03] LABS: ALBUMIN 2.7 g/dl (3.4-5.0); BLOOD UREA NITROGEN 52.8 mg/dL (7-18); MAGNESIUM 2.3 mg/dL (1.8-2.4)
[2024-12-14] MEDS: SODIUM ZIRCONIUM CYCLOSILICATE (LOKELMA) 5 GM PACKET PO SCH (09:19)
[2024-12-14] MEDS ORDERED: LIDOCAINE HCL 1%, 10 MG/ML (20ML VIAL) ONE (11:56)
[2024-12-14] MEDS ORDERED: HEPARIN NA (PORCINE) 5,000 UNITS/ML 1ML VIAL ONE (11:57)
[2024-12-14] MEDS ORDERED: PAPAVERINE HCL 30 MG/1 ML 10 ML VIAL NR ONE (11:57)
[2024-12-14] MEDS ORDERED: ONDANSETRON 4 MG/2 ML VIAL IVPUSH PRN ×3 (12:14→16:12)
[2024-12-14] MEDS ORDERED: MIDAZOLAM HCL 2 MG/2 ML SINGLE DOSE VIAL ONE (12:17)
[2024-12-14] MEDS ORDERED: ceFAZolin SODIUM 1 GM VIAL ONE (12:18)
[2024-12-14] MEDS: ceFAZolin SODIUM 1 GM VIAL IVPB ONE ×2 (12:28)
[2024-12-14] MEDS: LIDOCAINE HCL 1%, 10 MG/ML (20ML VIAL) NR ONE (12:34)
[2024-12-14] MEDS: POVIDONE-IODINE OINTMENT 10% - 28.4 GM TUBE TP ONE (13:20)
[2024-12-14] MEDS ORDERED: ACETAMINOPHEN 325 MG TABLET (FP) PO PRN (13:38)
[2024-12-14] MEDS ORDERED: FUROSEMIDE 40 MG TABLET (FP) PO SCH (14:00)
[2024-12-14] MEDS ORDERED: POLYETHYLENE GLYCOL (HEALTHYLAX) 3350 17 GM PACKET PO SCH (14:00)
[2024-12-14] MEDS ORDERED: hydrALAZINE HCL 50 MG TABLET (FP) PO SCH (14:00)
[2024-12-14] MEDS: POLYETHYLENE GLYCOL (HEALTHYLAX) 3350 17 GM PACKET PO SCH ×2 (15:30→21:41)
[2024-12-14] MEDS: hydrALAZINE HCL 50 MG TABLET (FP) PO SCH ×2 (15:30→21:41)
[2024-12-14] MEDS: FUROSEMIDE 40 MG TABLET (FP) PO SCH (15:30)
[2024-12-14] MEDS: SODIUM CHLORIDE 1,000 ML IV SCH (15:34)
[2024-12-14] MEDS ORDERED: INSULIN ASPART SLIDING SCALE (NOVOLOG) 1 VIAL SQ SCH ×2 (16:30)
[2024-12-14] MEDS: INSULIN ASPART SLIDING SCALE (NOVOLOG) 1 VIAL SQ SCH (17:21)
[2024-12-14 18:07] LABS: FREE KAPPA,SERUM 136.5 mg/L (3.3-19.4)
[2024-12-14] MEDS: ACETAMINOPHEN 325 MG TABLET (FP) PO PRN (21:39)
[2024-12-14] MEDS: ATORVASTATIN CA 20 MG TABLET (FP) PO SCH (21:41)
[2024-12-14] MEDS: HEPARIN NA (PORCINE) 5,000 UNITS/ML 1ML VIAL SQ SCH (21:41)
[2024-12-14] MEDS: INSULIN GLARGINE (LANTUS) 100 UNITS/ML UNITS SQ SCH (21:42)
[2024-12-14] MEDS: LIDOCAINE PATCH REMOVAL MC SCH ×2 (21:49)
[2024-12-14] MEDS ORDERED: INSULIN GLARGINE (LANTUS) 100 UNITS/ML UNITS SQ SCH ×3 (22:00)
[2024-12-14] MEDS ORDERED: LIDOCAINE PATCH REMOVAL MC SCH ×5 (22:00)
[2024-12-14] MEDS ORDERED: ATORVASTATIN CA 20 MG TABLET (FP) PO SCH ×2 (22:00)
[2024-12-14] MEDS ORDERED: HEPARIN NA (PORCINE) 5,000 UNITS/ML 1ML VIAL SQ SCH ×2 (22:00)
[2024-12-15] MEDS: FUROSEMIDE 40 MG TABLET (FP) PO SCH (06:19)
[2024-12-15] MEDS: amLODIPine BESYLATE 10 MG TABLET (FP) PO SCH (09:02)
[2024-12-15] MEDS: ASPIRIN 81 MG CHEWABLE TABLETS PO SCH (09:02)
[2024-12-15] MEDS: PANTOPRAZOLE 40 MG TABLET PO SCH (09:02)
[2024-12-15] MEDS: LIDOCAINE 4% PATCH TP SCH (09:03)
[2024-12-15 09:06] VITALS: RESP 18
[2024-12-15 09:19] LABS: HEMATOCRIT 24.3 % (34.1-44.9); HEMOGLOBIN 7.9 g/dL (11.2-15.7); MCHC 32.5 g/dl (32.2-35.5); MEAN CELL VOLUME 82.1 fl (79.4-94.8); MEAN PLT VOLUME 9.3 fl (9.4-12.3); PLATELET COUNT 337 x10^3/uL (182-369); RDW 15.4 % (12.5-17.0)
[2024-12-15 09:39] LABS: POTASSIUM 4.2 mmol/L (3.5-5.1)
[2024-12-15 09:42] LABS: BLOOD UREA NITROGEN 52.3 mg/dL (7-18); CALCIUM 8.2 mg/dL (8.5-10.1)
[2024-12-15 09:43] LABS: ALBUMIN 2.8 g/dl (3.4-5.0); MAGNESIUM 2.2 mg/dL (1.8-2.4)
[2024-12-15 09:46] LABS: CREATININE 3.3 mg/dL (0.55-1.3); PHOSPHOROUS 5.7 mg/dL (2.5-4.9)
[2024-12-15 09:47] LABS: BILIRUBIN,TOTAL 0.4 mg/dL (0.2-1); TOT PROT 6.6 g/dl (6.4-8.2)
[2024-12-15] MEDS ORDERED: amLODIPine BESYLATE 10 MG TABLET (FP) PO SCH ×2 (10:00)
[2024-12-15] MEDS ORDERED: PANTOPRAZOLE 40 MG TABLET PO SCH ×2 (10:00)
[2024-12-15] MEDS ORDERED: ASPIRIN 81 MG CHEWABLE TABLETS PO SCH ×2 (10:00)
[2024-12-15] MEDS ORDERED: LIDOCAINE 4% PATCH TP SCH ×2 (10:00)
[2024-12-15] MEDS ORDERED: INSULIN ASPART SLIDING SCALE (NOVOLOG) 1 VIAL SQ ONE (11:27)
[2024-12-15 13:51] VITALS: BP 138/54; PULSE 62; TEMP 97.9
[2024-12-15 15:33] VITALS: BMI 25.1
[2024-12-16] MEDS ORDERED: SODIUM ZIRCONIUM CYCLOSILICATE (LOKELMA) 5 GM PACKET PO SCH ×3 (10:00)
== END 2024-12-15 15:46 | disposition home or self-care (01) | DRG 264 ==
LOC: JER 19:53 → JERBED 12-09 01:59 → J4W 12-09 04:18 → J5S 12-14 16:11
PROVIDERS: ADMIT Hospitalist
PROC: 031 Upper Arteries, Bypass (ICD-10-PCS; principal; 2024-12-14 11:30)
DX: I13.2 Hypertensive heart and chronic kidney disease with heart failure and with stage 5 chronic kidney disease, or end stage renal disease (principal); I50.33 Acute on chronic diastolic (congestive) heart failure; N18.5 Chronic kidney disease, stage 5; E11.22 Type 2 diabetes mellitus with diabetic chronic kidney disease; I25.10 Atherosclerotic heart disease of native coronary artery without angina pectoris; K76.0 Fatty (change of) liver, not elsewhere classified; I44.1 Atrioventricular block, second degree; E87.5 Hyperkalemia; E11.65 Type 2 diabetes mellitus with hyperglycemia; K56.41 Fecal impaction; E11.43 Type 2 diabetes mellitus with diabetic autonomic (poly)neuropathy; D63.1 Anemia in chronic kidney disease; K58.9 Irritable bowel syndrome, unspecified; Z95.0 Presence of cardiac pacemaker
CPT/HCPCS: 0241U-QW; 36415; 70450-TC; 71045-TC-FY; 72125-TC; 74176-TC; 80053; 82378; 82565; 82607; 82746; 82784; 82803; 82962; 82977; 83036; 83516; 83540; 83550; 83605; 83690; 83735; 83880; 83883; 84100; 84155; 84165; 84484; 84520; 85025; 85027; 85610; 85730; 86334; 86803; 87340; 87517; 93005; 93010; 94760; 97116-GP; 97162-GP; 99285-25; J0131; J1644

== ENCOUNTER 2024-12-29 18:54 | Emergency (ER) | payer OTHER ==
[2024-12-29 19:03] VITALS: BMI 26.4
[2024-12-29] MEDS ORDERED: ACETAMINOPHEN 325 MG TABLET (FP) ONE (19:50)
[2024-12-29] MEDS: ACETAMINOPHEN 500 MG TABLET (FP) PO ONE (19:53)
[2024-12-29] MEDS ORDERED: LIDOCAINE 5% TOPICAL PATCH ONE (19:57)
[2024-12-29] MEDS: LIDOCAINE 5% TOPICAL PATCH TP ONE (20:00)
[2024-12-29] MEDS: LIDOCAINE PATCH REMOVAL MC SCH (22:01)
[2024-12-29] MEDS ORDERED: GLYCERIN 1 RECTAL SUPPOSITORY, PEDIATRIC RC ONE (22:19)
[2024-12-29] MEDS: GLYCERIN 1 RECTAL SUPPOSITORY, ADULT PR ONE (22:21)
[2024-12-30] MEDS: SODIUM PHOSPHATE/NA BIPHOS 133 ML ENEMA PR ONE ×2 (00:24→00:32)
[2024-12-30 00:32] VITALS: BP 154/64; PULSE 65; RESP 16; TEMP 97.3
== END 2024-12-30 00:32 | disposition home or self-care (01) ==
LOC: JER 18:54
DX: M54.2 Cervicalgia (principal); R60.0 Localized edema; W01.0XXA Fall on same level from slipping, tripping and stumbling without subsequent striking against object, initial encounter
CPT/HCPCS: 70450-TC; 71045-TC-FY; 72125-TC; 99284-25

== ENCOUNTER 2025-01-29 17:13 | Inpatient (IN) | payer OTHER ==
[2025-01-29] MEDS ORDERED: METOCLOPRAMIDE HCL INJECTION 10 MG/2 ML VIAL ONE (18:39)
[2025-01-29] MEDS ORDERED: ACETAMINOPHEN INJECTION 100 ML ONE (18:39)
[2025-01-29] MEDS: ACETAMINOPHEN 1000 MG/100 ML BAG IVPB ONE (18:54)
[2025-01-29] MEDS: METOCLOPRAMIDE HCL INJECTION 10 MG/2 ML VIAL IVPUSH ONE (18:55)
[2025-01-29 19:04] LABS: BASOPHILS # 0.04 x10^3/uL (0.01-0.08); EOSINOPHIL % 2.1 % (0.7-5.8); EOSINOPHILS # 0.13 x10^3/uL (0.04-0.36); HEMATOCRIT 23.8 % (34.1-44.9); HEMOGLOBIN 7.4 g/dL (11.2-15.7); MCHC 31.1 g/dl (32.2-35.5); MEAN PLT VOLUME 8.4 fl (9.4-12.3); MONOCYTE # 0.55 x10^3/uL (0.24-0.86); PLATELET COUNT 333 x10^3/uL (182-369); RDW 15.9 % (12.5-17.0)
[2025-01-29] MEDS ORDERED: LIDOCAINE 4% PATCH TP ONE (19:05)
[2025-01-29] MEDS: LIDOCAINE 4% PATCH TP ONE (19:17)
[2025-01-29 19:52] LABS: POTASSIUM 4.9 mmol/L (3.5-5.1)
[2025-01-29 19:56] LABS: ALBUMIN 3.2 g/dl (3.4-5.0); BLOOD UREA NITROGEN 50.7 mg/dL (7-18); CALCIUM 8.3 mg/dL (8.5-10.1); MAGNESIUM 2.6 mg/dL (1.8-2.4)
[2025-01-29 19:59] LABS: CREATININE 3.1 mg/dL (0.55-1.3)
[2025-01-29 20:01] LABS: BILIRUBIN,TOTAL 0.2 mg/dL (0.2-1); TOT PROT 7.2 g/dl (6.4-8.2)
[2025-01-29] MEDS ORDERED: FUROSEMIDE 40 MG/4 ML INJECTABLE VIAL ONE (20:44)
[2025-01-29] MEDS: FUROSEMIDE 40 MG/4 ML INJECTABLE VIAL IVPUSH ONE (20:49)
[2025-01-29 22:21] VITALS: RESP 18
[2025-01-30] MEDS: FUROSEMIDE 40 MG/4 ML INJECTABLE VIAL IVPUSH ONE (01:55)
[2025-01-30 02:05] VITALS: BMI 30.1
[2025-01-30] MEDS: FUROSEMIDE 40 MG/4 ML INJECTABLE VIAL IVPUSH SCH (06:20)
[2025-01-30] MEDS: hydrALAZINE HCL 50 MG TABLET (FP) PO SCH (06:20)
[2025-01-30] MEDS: HEPARIN NA (PORCINE) 5,000 UNITS/ML 1ML VIAL SQ SCH (06:20)
[2025-01-30] MEDS: LIDOCAINE PATCH REMOVAL MC SCH ×2 (06:20→21:08)
[2025-01-30] MEDS: INSULIN ASPART SLIDING SCALE (NOVOLOG) 1 VIAL SQ SCH (06:21)
[2025-01-30 08:55] LABS: ABSOLUTE IMMATURE GRANULOCYTES 0.09 x10^3/uL (0.0-0.031); BASOPHILS # 0.04 x10^3/uL (0.01-0.08); EOSINOPHIL % 3.5 % (0.7-5.8); EOSINOPHILS # 0.14 x10^3/uL (0.04-0.36); HEMATOCRIT 20.7 % (34.1-44.9); HEMOGLOBIN 6.7 g/dL (11.2-15.7); MCHC 32.4 g/dl (32.2-35.5); MEAN CELL VOLUME 77.5 fl (79.4-94.8); MEAN PLT VOLUME 8.8 fl (9.4-12.3); MONOCYTE # 0.42 x10^3/uL (0.24-0.86); MONOCYTE % 10.4 % (4.7-12.5); PLATELET COUNT 310 x10^3/uL (182-369); RDW 15.8 % (12.5-17.0)
[2025-01-30 09:58] LABS: POTASSIUM 4.6 mmol/L (3.5-5.1)
[2025-01-30] MEDS: BISACODYL 5 MG TABLET.DR (FP) PO SCH (10:14)
[2025-01-30] MEDS: EZETIMIBE 10 MG TABLET (FP) PO SCH (10:14)
[2025-01-30] MEDS: amLODIPine BESYLATE 10 MG TABLET (FP) PO SCH (10:14)
[2025-01-30] MEDS: LIDOCAINE 4% PATCH TP SCH (10:14)
[2025-01-30] MEDS: ASPIRIN COATED 81 MG TABLET.EC PO SCH (10:14)
[2025-01-30] MEDS: PANTOPRAZOLE 40 MG TABLET PO SCH (10:14)
[2025-01-30 10:55] LABS: MAGNESIUM 2.6 mg/dL (1.8-2.4)
[2025-01-30 10:56] LABS: BLOOD UREA NITROGEN 55.4 mg/dL (7-18); CALCIUM 8.1 mg/dL (8.5-10.1)
[2025-01-30 10:59] LABS: CREATININE 3.3 mg/dL (0.55-1.3)
[2025-01-30 11:00] LABS: PHOSPHOROUS 6.4 mg/dL (2.5-4.9); TOT PROT 6.3 g/dl (6.4-8.2)
[2025-01-30 11:01] LABS: BILIRUBIN,TOTAL 0.2 mg/dL (0.2-1)
[2025-01-30] MEDS: SODIUM BICARBONATE 650 MG TABLET PO SCH (14:04)
[2025-01-30 15:07] LABS: Reticulocyte % 2.17 % (0.5-1.7)
[2025-01-30 16:56] LABS: HEMATOCRIT 21.8 % (34.1-44.9); MCHC 32.1 g/dl (32.2-35.5); MEAN CELL VOLUME 77.9 fl (79.4-94.8); MEAN PLT VOLUME 9.2 fl (9.4-12.3); PLATELET COUNT 333 x10^3/uL (182-369); RDW 15.9 % (12.5-17.0)
[2025-01-30] MEDS: SEVELAMER CARBONATE 800 MG TAB (FP) PO SCH (16:56)
[2025-01-31] MEDS: INSULIN ASPART SLIDING SCALE (NOVOLOG) 1 VIAL SQ SCH (08:06)
[2025-01-31 09:26] LABS: HEMATOCRIT 27.4 % (34.1-44.9); MCHC 32.8 g/dl (32.2-35.5); MEAN CELL VOLUME 78.3 fl (79.4-94.8); MEAN PLT VOLUME 8.8 fl (9.4-12.3); PLATELET COUNT 338 x10^3/uL (182-369)
[2025-01-31 09:30] VITALS: BP 165/55; PULSE 59; TEMP 98.1
[2025-01-31 09:54] LABS: POTASSIUM 4.4 mmol/L (3.5-5.1)
[2025-01-31 10:05] LABS: ALBUMIN 3.3 g/dl (3.4-5.0); BILIRUBIN,TOTAL 0.5 mg/dL (0.2-1); BLOOD UREA NITROGEN 56.8 mg/dL (7-18)
[2025-01-31 10:06] LABS: TOT PROT 7.2 g/dl (6.4-8.2)
[2025-01-31 10:07] LABS: CREATININE 3.5 mg/dL (0.55-1.3); MAGNESIUM 2.3 mg/dL (1.8-2.4); PHOSPHOROUS 6.2 mg/dL (2.5-4.9)
[2025-01-31 10:08] LABS: CALCIUM 8.6 mg/dL (8.5-10.1)
== END 2025-01-31 13:56 | disposition home or self-care (01) | DRG 291 ==
LOC: JER 17:13 → JERBED 20:34 → OBSVTOIN 22:13 → J5S 01-30 01:27
PROVIDERS: ADMIT Student in an Organized Health Care Education/Training Program; ATTEND Internal Medicine
DX: I13.2 Hypertensive heart and chronic kidney disease with heart failure and with stage 5 chronic kidney disease, or end stage renal disease (principal); I50.33 Acute on chronic diastolic (congestive) heart failure; N18.5 Chronic kidney disease, stage 5; E87.1 Hypo-osmolality and hyponatremia; E11.22 Type 2 diabetes mellitus with diabetic chronic kidney disease; D64.9 Anemia, unspecified; E78.00 Pure hypercholesterolemia, unspecified; Z95.0 Presence of cardiac pacemaker; K21.9 Gastro-esophageal reflux disease without esophagitis; K59.00 Constipation, unspecified; M54.2 Cervicalgia; D63.1 Anemia in chronic kidney disease; E87.70 Fluid overload, unspecified
CPT/HCPCS: 36415; 36430; 71045-TC-FY; 76705-TC; 80053; 80061; 82272; 82728; 82962; 83036; 83540; 83550; 83735; 83880; 84100; 84484; 85025; 85027; 86850; 86900; 86901; 86922; 93005; 93010; 93306-TC; 99285-25; G0378; J0131; J1644; P9058

== ENCOUNTER 2025-02-15 18:00 | Emergency (ER) | payer OTHER ==
[2025-02-15 18:35] VITALS: BP 155/96; PULSE 60; RESP 18; TEMP 98.5; BMI 25.7
[2025-02-15] MEDS ORDERED: MECLIZINE HCL 25 MG TABLET (FP) ONE (19:47)
[2025-02-15] MEDS: MECLIZINE HCL 25 MG TABLET (FP) PO ONE (20:03)
[2025-02-15 20:08] LABS: ABSOLUTE IMMATURE GRANULOCYTES 0.03 x10^3/uL (0.0-0.031); BASOPHILS # 0.02 x10^3/uL (0.01-0.08); EOSINOPHIL % 2.4 % (0.7-5.8); EOSINOPHILS # 0.11 x10^3/uL (0.04-0.36); HEMATOCRIT 28.5 % (34.1-44.9); HEMOGLOBIN 9.2 g/dL (11.2-15.7); MCHC 32.3 g/dl (32.2-35.5); MEAN CELL VOLUME 80.1 fl (79.4-94.8); MEAN PLT VOLUME 9.7 fl (9.4-12.3); MONOCYTE # 0.41 x10^3/uL (0.24-0.86); MONOCYTE % 8.8 % (4.7-12.5); PLATELET COUNT 168 x10^3/uL (182-369); RDW 19.4 % (12.5-17.0)
[2025-02-15 20:29] LABS: POTASSIUM 5.2 mmol/L (3.5-5.1)
[2025-02-15 20:31] LABS: ALBUMIN 3.1 g/dl (3.4-5.0); BLOOD UREA NITROGEN 62.8 mg/dL (7-18); CALCIUM 8.3 mg/dL (8.5-10.1); MAGNESIUM 1.9 mg/dL (1.8-2.4)
[2025-02-15 20:35] LABS: CREATININE 3.2 mg/dL (0.55-1.3)
[2025-02-15 20:36] LABS: BILIRUBIN,TOTAL 0.3 mg/dL (0.2-1); TOT PROT 7.2 g/dl (6.4-8.2)
[2025-02-15 21:16] LABS: N-TERMINAL BNP 4782.5 pg/ml (5-450)
== END 2025-02-15 22:27 | disposition home or self-care (01) ==
LOC: JER 18:00
DX: R42 Dizziness and giddiness (principal); R53.1 Weakness; R60.0 Localized edema
CPT/HCPCS: 36415; 71045-TC-FY; 80053; 83735; 83880; 84484; 85025; 93005; 93010; 99285-25

== ENCOUNTER 2025-04-19 09:53 | Emergency (ER) | payer OTHER ==
[2025-04-19 10:22] VITALS: PULSE 60; RESP 20; TEMP 97.1; BMI 25.4
[2025-04-19] MEDS ORDERED: ACETAMINOPHEN INJECTION 100 ML ONE (13:15)
[2025-04-19] MEDS: ACETAMINOPHEN 1000 MG/100 ML BAG IVPB ONE (13:31)
[2025-04-19] MEDS: SODIUM CHLORIDE 500 ML IV STA (13:31)
[2025-04-19 13:41] LABS: MCHC 32.4 g/dl (32.2-35.5); MEAN CELL VOLUME 81.8 fl (79.4-94.8); MEAN PLT VOLUME 10.1 fl (9.4-12.3); RDW 18.6 % (12.5-17.0)
[2025-04-19 13:49] LABS: INR 0.81 (0.83-1.09); PROTHROMBIN TIME (PATIENT) 8.9 SEC (9.7-13.0)
[2025-04-19 13:52] LABS: ACTIVATED PTT 19.8 SECONDS (25.2-36.5)
[2025-04-19 14:14] LABS: CO2 27.0 mmol/L (21-32); GLUCOSE,RANDOM 186.0 mg/dL (74-106)
[2025-04-19 14:17] LABS: CREATININE 4.1 mg/dL (0.55-1.3); SGOT/AST 33.0 U/L (15-37); SGPT/ALT 20.0 U/L (13-61)
[2025-04-19 14:20] LABS: ALK PHOS 146.0 U/L (45-117); TOT PROT 7.8 g/dl (6.4-8.2)
[2025-04-19] MEDS ORDERED: SODIUM CHLORIDE 1,000 ML IV STA (16:22)
[2025-04-19 20:10] VITALS: BP 143/51
[2025-04-20 00:23] LABS: HCV DIAGNOSTIC IN-HOUSE W/RFLX NON-REACTIVE (NONREACTIVE); HIV INTERPRETATION NEGATIVE (NEGATIVE)
== END 2025-04-19 17:15 | disposition left against medical advice (07) ==
LOC: JER 09:53
PROC: 3E033NZ Introduction of Analgesics, Hypnotics, Sedatives into Peripheral Vein, Percutaneous Approach (ICD-10-PCS; principal; 2025-04-19)
PROC: 3E0337Z Introduction of Electrolytic and Water Balance Substance into Peripheral Vein, Percutaneous Approach (ICD-10-PCS; 2025-04-19)
DX: R07.2 Precordial pain (principal); H02.401 Unspecified ptosis of right eyelid
CPT/HCPCS: 36415; 71045-TC-FY; 80053; 83735; 83880; 84100; 84484; 85027; 85379; 85610; 85730; 86803; 87389; 93005; 93010; 99285-25